=== PATIENT | male | born 1940 | race Caucasian/White ===

== ENCOUNTER 2019-03-26 16:41 | Emergency (ER) | payer OTHER ==
[~2019-03-26] VITALS: Ht 172.7 cm; Wt 79.4 kg
[~2019-03-26 16:41] MED LIST: COREG12.5 MG PO; FOLIC ACID1 MG PO; GARLIC1000 M1 MT; LOSARTAN POTASS25 MG PO; NIACIN MT; PREVACID30 M2 MT; TAMSULOSIN HCL0.4 MG PO; VITAMIN A DAY1 EACH MT; WARFARIN SODIU2.5 MG PO; Z.0.AVAPRO150 MG MT; Z.0.CARVEDILOL25 MG MT; Z.0.ECOTRIN325 MG MT; Z.0.LIPITOR40 MG MT; Z.0.VITAMIN C1000 M2 MT; Z.0.VITAMIN D1000 UN MT; Z.0.VITAMIN E1000 UN MT; Z.0.ZETIA10 MG MT; Z.1.ISOSORBIDE MONO3 MT; Z.6.FISH OIL 1,0001 MT
--- OUTSIDE RECORDS SUMMARY | 2019-03-26 16:45 | XMS REPORT | Continuity of Care Document ---
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 Name Role Phone [facility] Unavailable Unavailable Problems Problem Status Onset Date Classification Date Reported Comments Source UNK Active 02/16/2017 [facility] Chronic systolic heart failure (disorder) Active Problem 03/05/2017 [facility] Hyperlipidemia (disorder) Active Problem 03/05/2017 [facility] Hypertensive disorder, systemic arterial (disorder) Active Problem 03/05/2017 [facility] History of - myocardial infarction (context-dependent category) Active Problem 03/05/2017 [facility] Medications Medication Details Route Status Patient Instructions Ordering Provider Order Date Source atorvastatin 80 mg, 2 tab, Route: PO, Drug form: TAB, Daily, Dosing Weight 77.074, kg, Start date: 03/02/17 9:00:00 CDT, Duration: 30 day, Stop date: 03/31/17 9:00:00 CDTNotes: (Same as: Lipitor) Inactive 03/02/2017 [facility] Losartan 25 mg, 1 tab, Route: PO, Drug form: TAB, Daily, Dosing Weight 77.074, kg, Start date: 03/02/17 9:00:00 CDT, Duration: 30 day, Stop date: 03/31/17 9:00:00 CDTNotes: (Same as: Cozaar) Inactive 03/02/2017 [facility] tamsulosin 0.4 mg, 1 cap, Route: PO, Drug form: CAP, Daily, Dosing Weight 77.074, kg, Start date: 03/01/17 21:00:00 CDT, Duration: 30 day, Stop date: 03/30/17 21:00:00 CDTNotes: (Same As: Flomax) "Do Not Crush" No Longer Active 03/02/2017 [facility] pantoprazole 40 mg, 1 tab, Route: PO, Drug form: ECTAB, Daily, Dosing Weight 77.074, kg, Start date: 03/01/17 21:00:00 CDT, Duration: 30 day, Stop date: 03/30/17 21:00:00 CDTNotes: Tablet should not be chewed or crushed. (Same as: Protonix) No Longer Active 03/02/2017 [facility] carvedilol 12.5 mg, 1 tab, Route: PO, Drug form: TAB, BID, Dosing Weight 77.074, kg, Start date: 03/01/17 21:00:00 CDT, Duration: 30 day, Stop date: 03/31/17 9:00:00 CDTNotes: Give with food. (Same As: Coreg) No Longer Active 03/02/2017 [facility] acetaminophen-codeine #3 1 tab, Route: PO, Drug Form: TAB, Dosing Weight 77.074, kg, Q4H, PRN Pain Score 4-6, Start date: 03/01/17 16:22:00 CDT, Duration: 30 day, Stop date: 03/31/17 16:21:00 CDTNotes: Do not exceed 4gm/day of acetaminophen. (Same as: Tylenol with Codeine # 3) No Longer Active 03/01/2017 [facility] Vancomycin 1 gm, Route: IVPB, ONCE, Dosing Weight 77.074, kg, Start date: 03/01/17 16:22:00 CDT, Stop date: 03/01/17 16:22:00 CDT, ABX Indication: Surgical ProphylaxisNotes: TIME CRITICAL MEDICATION (Same As: Vanc ocin) Infusion rate 2001 mg: infuse over 2.5 hours MEDICATION WASTE Product Size: 1000 mg Product Wasted: ___ mg No Longer Active 03/01/2017 [facility] Ondansetron 4 mg, 2 mL, Route: IVP, Drug form: INJ, Q8H, Dosing Weight 77.074, kg, PRN Nausea & Vomiting, Start date: 03/01/17 16:22:00 CDT, Duration: 30 day, Stop date: 03/31/17 16:21:00 CDTNotes: (Same as: Zofran) MEDICATION WASTE Product Size: 4 mg Product Wasted: ___ mg No Longer Active 03/01/2017 [facility] Acetaminophen 325 mg, 1 tab, Route: PO, Drug form: TAB, Q4H, Dosing Weight 77.074, kg, PRN Pain Score 4-6, Start date: 03/01/17 16:22:00 CDT, Duration: 30 day, Stop date: 03/31/17 16:21:00 CDTNotes: Do not exceed 4 gm/day. (Same as: Tylenol) No Longer Active 03/01/2017 [facility] Epinephrine 0.005 MG/ML / Lidocaine Hydrochloride 10 MG/ML Injection 60 mL, Route: SUB-Q, Drug Form: INJ, Dosing Weight 77.074, kg, ONCE, Start date: 03/01/17 11:40:00 CDT, Stop date: 03/01/17 11:40:00 CDTNotes: (lidocaine-epi 1%-1:38275 30 ml AMP (PF)) Preservative-free (Same as: Xylocaine-MPF w/Epinephrine) Inactive 03/01/2017 [facility] warfarin 1 mg oral tablet 1 mg=1 tab, PO, Daily, # 30 tab, 0 Refill(s) Active 02/26/2017 [facility] pantoprazole 40 mg oral enteric coated tablet 40 mg=1 tab, PO, Daily, # 30 tab, 0 Refill(s) Active 02/26/2017 [facility] tamsulosin 0.4 mg oral capsule 0.4 mg=1 cap, PO, Daily, # 30 cap, 0 Refill(s) Active 02/26/2017 [facility] losartan 25 mg oral tablet 25 mg=1 tab, PO, Daily, # 30 tab, 1 Refill(s) Active 02/26/2017 [facility] carvedilol 12.5 mg oral tablet 12.5 mg=1 tab, PO, BID, # 180 tab, 0 Refill(s) Active 02/26/2017 [facility] atorvastatin 80 mg oral tablet 80 mg=1 tab, PO, Bedtime, # 30 tab, 0 Refill(s) Active 02/26/2017 [facility] Allergies, Adverse Reactions, Alerts No Known Medication Allergies Immunizations Immunization Date Given Site Status Last Updated Comments Source pneumococcal 23-valent vaccine 06/02/2015 completed [facility] Results Order Name Results Value Reference Range Date Interpretation Comments Source HEMATOLOGY PT 21.7 12.0 - 14.7 03/01/2017 [facility] HEMATOLOGY INR 1.85 0.85 - 1.17 03/01/2017 [facility] CHEM PANEL eGFR 65 02/26/2017 Result Comment: The eGFR is calculated using the CKD-EPI formula. In most young, healthy individuals the eGFR will be >90 mL/min/1.73m2. The eGFR declines with age. An eGFR of 60-89 may be normal in some populations, particularly the elderly, for whom the CKD-EPI formula has not been extensively validated. Use of the eGFR is not recommended in the following populations:

Individuals with unstable creatinine concentrations, including patients and those with serious co-morbid conditions.

Patients with extremes in muscle mass or diet.

The data above are obtained from the National Kidney Disease Education Program (NKDEP) which additionally recommends that when the eGFR is used in patients with extremes of body mass index for purposes of drug dosing, the eGFR should be multiplied by the estimated BMI. [facility] CHEM PANEL Chloride Lvl 106 95 - 109 02/26/2017 [facility] CHEM PANEL Potassium Lvl 4.0 3.5 - 5.1 02/26/2017 [facility] CHEM PANEL Sodium Lvl 143 135 - 145 02/26/2017 [facility] CHEM PANEL Creatinine Lvl 1.10 0.50 - 1.40 02/26/2017 [facility] CHEM PANEL Glucose Lvl 108 70 - 99 02/26/2017 [facility] CHEM PANEL BUN 12 7 - 22 02/26/2017 [facility] CHEM PANEL Calcium Lvl 8.8 8.5 - 10.5 02/26/2017 [facility] CHEM PANEL CO2 33 24 - 32 02/26/2017 [facility] CHEM PANEL AGAP 8.0 10.0 - 20.0 02/26/2017 [facility] HEMATOLOGY PTT 33.8 22.9 - 35.8 02/26/2017 [facility] HEMATOLOGY INR 2.22 0.85 - 1.17 02/26/2017 [facility] HEMATOLOGY PT 25.0 12.0 - 14.7 02/26/2017 [facility] HEMATOLOGY RDW 13.6 11.5 - 14.5 02/26/2017 [facility] HEMATOLOGY MCH 30.8 27.0 - 31.0 02/26/2017 [facility] MCHC 34.5 32.0 - 36.0 02/26/2017 [facility] MPV 7.6 7.4 - 10.4 02/26/2017 [facility] Platelet 111 133 - 450 02/26/2017 [facility] HEMATOLOGY Hgb 15.0 14.0 - 18.0 02/26/2017 [facility] HEMATOLOGY RBC 4.87 4.70 - 6.10 02/26/2017 [facility] Hct 43.5 42.0 - 54.0 02/26/2017 [facility] MCV 89.4 80.0 - 94.0 02/26/2017 [facility] HEMATOLOGY WBC 5.2 3.7 - 10.4 02/26/2017 [facility] Eosinophils # 0.3 0.0 - 0.5 02/26/2017 [facility] Monocytes # 0.5 0.0 - 0.8 02/26/2017 [facility] HEMATOLOGY Lymphocytes # 0.9 1.0 - 5.5 02/26/2017 [facility] Basophils 0.8 0.0 - 1.0 02/26/2017 [facility] Segs-Bands # 3.4 1.5 - 8.1 02/26/2017 [facility] Segs 66.8 45.0 - 75.0 02/26/2017 [facility] Monocytes 9.0 2.0 - 12.0 02/26/2017 [facility] Eosinophils 5.6 0.0 - 4.0 02/26/2017 [facility] Lymphocytes 17.8 20.0 - 40.0 02/26/2017 [facility] Pathology Reports No Data Provided for This Section Diagnostic Reports Report Value Date Source Chest 2 views DX Patient Name: SHANNON PALMER : 1940; Age: 76 years y/o Male MR: [id number] Study: Chest 2 views DX 03/02/2017 3:00 AM CDT Ordering Physician: MD Coco Regalado MD Clinical Indication: Heart failure - Status post PPM/ICD Implantation; Comparison: 03/01/2017 2 views chest Pacemaker/defibrillator generator left chest wal,l with leads extending into the right atrium and ventricle, as before. Heart size normal. No evidence for acute congestive heart failure or pulmonary edema No pneumothorax or pleural effusion. Lungs are hyperinflated but remain clear. IMPRESSION: No new or acute finding. SL: [id number] 03/02/2017 [facility] Chest 1 v for Placement DX Study: Chest 1 v portable 03/01/2017 1753 hours Clinical Indication: Status post PPM/ICD Implantation; Comparison: None FINDINGS: Intracardiac devices introduced from a left subclavian approach terminate within the right heart. No pneumothorax is evident. The lungs are emphysematous but appear clear. No vascular congestion or pleural effusion is seen. Cardiac size is normal. There is minor aortic atherosclerosis. IMPRESSION: No pneumothorax post intracardiac device placement. SL: [id number] 03/01/2017 [facility] Consultation Notes No Data Provided for This Section Discharge Summaries No Data Provided for This Section History and Physicals No Data Provided for This Section Vital Signs Vital Sign Value Date Comments Source Systolic (mm Hg) 128 03/02/2017 [facility] Diastolic (mm Hg) 78 03/02/2017 [facility] Respitory Rate 18 03/02/2017 [facility] Heart Rate 68 03/02/2017 [facility] Temperature Oral (F) 98.1 F 03/02/2017 [facility] Heart Rate 61 03/02/2017 [facility] Temperature Oral (F) 98.3 F 03/02/2017 [facility] Respitory Rate 18 03/02/2017 [facility] Systolic (mm Hg) 129 03/02/2017 [facility] Diastolic (mm Hg) 75 03/02/2017 [facility] Heart Rate 63 03/02/2017 [facility] Temperature Oral (F) 97.8 F 03/02/2017 [facility] Systolic (mm Hg) 101 03/02/2017 [facility] Diastolic (mm Hg) 63 03/02/2017 [facility] Respitory Rate 18 03/02/2017 [facility] BMI Calculated 26.61 02/26/2017 [facility] Weight 77.074 02/26/2017 [facility] Height 170.18 cm 02/26/2017 [facility] Encounters Location Location Details Encounter Type Encounter Number Reason For Visit Attending Provider ADM Date DC Date Status Source [facility] Bedded Outpatient [id number] Coco Regalado 03/01/2017 03/02/2017 [facility] Procedures Procedure Code Date Perfomer Comments Source Cholecystectomy [id number] [facility] Colonoscopy [id number] [facility] ICD - Internal cardiac defibrillator procedure [id number] [facility] Assessment and Plan No Data Provided for This Section Plan of Care No Data Provided for This Section Social History Social History Date Source Social History TypeResponse Substance Abuse Use: None. Alcohol Never, Previous treatment: None. Smoking Status Former smoker; Type: Cigarettes; Exposure to Tobacco Smoke None; Cigarette Smoking Last 365 Days No; Reg Smoking Cessation Counseling No 02/26/2017 [facility] Family History No Data Provided for This Section Advance Directives No Data Provided for This Section Functional Status No Data Provided for This Section
--- OUTSIDE RECORDS SUMMARY | 2019-03-26 16:45 | XMS REPORT | Clinical Summary ---
Author Author [facility] Organization [facility] Address Unknown Phone Unavailable Care Team Providers Care Guidance Counselor Name Role Phone Sheldon Tan MD PCP Allergies No Known Allergies Medications End Date Status Medication Sig Dispensed Refills Start Date Active atorvastatin (LIPITOR) 80 Take 80 mg by 3 MG tablet mouth daily. 8 Active carvedilol (COREG) 25 MG Take 25 mg by 1 tablet mouth 2 (two) 8 times a day. Active losartan (COZAAR) 25 MG Take 25 mg by 2 tablet mouth daily. 8 Active pantoprazole (PROTONIX) Take 40 mg by 0 40 MG EC tablet mouth daily. 8 Active tamsulosin (FLOMAX) 0.4 TAKE ONE 0 mg capsule,extended CAPSULE BY 8 release 24hr MOUTH EVERY DAY 30 MINUTES AFTER THE SAME MEAL DAILY Active warfarin (COUMADIN) 1 MG Take 1 mg by 3 tablet mouth daily. 8 Active folic acid (FOLVITE) 1 MG Take 1 mg by 0 tablet mouth daily. Active ascorbic acid, vitamin C, Take 500 mg 0 (VITAMIN C) 500 MG tablet by mouth daily. Active vitamin A 54248 UNIT Take 10,000 0 capsule Units by mouth daily. Active cholecalciferol, vitamin Take 1,000 0 D3, (VITAMIN D3) 1,000 Units by unit tablet mouth daily. Active Problems No known active problems Encounters Care Team Description Date Type Specialty HuJovita MD Impacted cerumen of right ear (Primary Dx) 08/12/2018 Office Visit Otolaryngology after 03/25/2018 Social History Date Tobacco Use Types Packs/Day Years Used Never Smoker Smokeless Tobacco: Never Used Drinks/Week oz/Week Comments Alcohol Use occasional Yes Sex Assigned at Date Recorded Not on file Industry Job Start Date Occupation Not on file Not on file Not on file Travel End Travel History Travel Start No recent travel history available. 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 Weight 172.7 cm (5' 8") 08/12/2018 10:52 AM NUT SHELLER MACHINE OPERATOR Height 26.91 08/12/2018 10:52 AM NUT SHELLER MACHINE OPERATOR Body Mass Index Plan of Treatment Care Team Description [place] [id number] [facility] [address] [place] [address] 08/28/2019 Office Visit Otolaryngology Health Maintenance Due Date Last Done Comments SHINGLES VACCINES (#1) 1991 65+ PNEUMOCOCCAL VACCINE 2006 (1 of 2 - PCV13) INFLUENZA VACCINE 03/02/2019 Results Not on fileafter 03/25/2018 Insurance Type Payer Benefit Subscriber ID Effective Phone Address Plan / Dates Group HMO [employer] TEX[employer] xxxxxxxxx 2015-P JESSENIA tran Advance Directives For more information, please contact: [phone] 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
--- OUTSIDE RECORDS SUMMARY | 2019-03-26 16:45 | XMS REPORT | Summary of Care ---
Author Author [facility] Organization [facility] Address Unknown Phone Unavailable Encounter SHERLEY Ko(CORRINE) [id number] Date(s): 03/01/17 - 03/02/17 [facility] [address] [place] [address]- [phone] Discharge Disposition: Home or Self Care Attending Physician: Coco Regalado MD Referring Physician: Coco Regalado MD Vital Signs 1 2 3 Most recent to oldest [Reference Range]: 170.18 cm (02/26/17 4:00 PM) Height 98.1 DegF (03/02/17 7:57 AM) 98.3 DegF (03/02/17 4:00 AM) 97.8 DegF (03/02/17 12:00 AM) Temperature Oral [96.4-99.1 DegF] 128/78 mmHg (03/02/17 7:57 AM) 129/75 mmHg (03/02/17 4:00 AM) 101/63 mmHg (03/02/17 12:00 AM) Blood Pressure [90-140/60-90 mmHg] 18 BRMIN (03/02/17 7:57 AM) 18 BRMIN (03/02/17 4:00 AM) 18 BRMIN (03/02/17 12:00 AM) Respiratory Rate [14-20 BRMIN] 68 bpm (03/02/17 7:57 AM) 61 bpm (03/02/17 4:00 AM) 63 bpm (03/02/17 12:00 AM) Peripheral Pulse Rate [60-100 bpm] 77.074 kg (02/26/17 4:00 PM) Weight 26.61 m2 (02/26/17 4:00 PM) Body Mass Index Problem List Condition Effective Dates Status Health Status Informant Systolic heart Active failure, chronic(Confirmed) HLD Active (hyperlipidemia)(Con firmed) Hypertension(Confirm Active ed) History of heart Active attack(Confirmed) Allergies, Adverse Reactions, Alerts Substance Reaction Severity Status NKDA Active Medications acetaminophen 325 mg, 1 tab, Route: PO, Drug form: TAB, Q4H, Dosing Weight 77.074, kg, PRN Michaela n Score 4-6, Start date: 03/01/17 16:22:00 CDT, Duration: 30 day, Stop date: 16:21:00 CDT Notes: Do not exceed 4 gm/day. (Same as: Tylenol) Start Date: 03/01/17 Stop Date: 03/02/17 Status: Discontinued acetaminophen-codeine #3 1 tab, Route: PO, Drug Form: TAB, Dosing Weight 77.074, kg, Q4H, PRN Pain Score 4-6, Start date: 03/01/17 16:22:00 CDT, Duration: 30 day, Stop date: 03/31/17 16 :21:00 CDT Notes: Do not exceed 4gm/day of acetaminophen. (Same as: Tylenol with Codeine # 3) Start Date: 03/01/17 Stop Date: 03/02/17 Status: Discontinued atorvastatin 80 mg, 2 tab, Route: PO, Drug form: TAB, Daily, Dosing Weight 77.074, kg, Start date: 03/02/17 9:00:00 CDT, Duration: 30 day, Stop date: 03/31/17 9:00:00 CDT Notes: (Same as: Lipitor) Start Date: 03/02/17 Stop Date: 03/02/17 Status: Discontinued atorvastatin 80 mg oral tablet 80 mg=1 tab, PO, Bedtime, # 30 tab, 0 Refill(s) Start Date: 02/26/17 Status: Ordered carvedilol 12.5 mg, 1 tab, Route: PO, Drug form: TAB, BID, Dosing Weight 77.074, kg, Start date: 03/01/17 21:00:00 CDT, Duration: 30 day, Stop date: 03/31/17 9:00:00 CDT Notes: Give with food. (Same As: Coreg) Start Date: 03/01/17 Stop Date: 03/02/17 Status: Discontinued carvedilol 12.5 mg oral tablet 12.5 mg=1 tab, PO, BID, # 180 tab, 0 Refill(s) Start Date: 02/26/17 Status: Ordered EPINEPHrine-lidocaine 1:200,000-1% preservative-free injectable solution 60 mL, Route: SUB-Q, Drug Form: INJ, Dosing Weight 77.074, kg, ONCE, Start date: 03/01/17 11:40:00 CDT, Stop date: 03/01/17 11:40:00 CDT Notes: (lidocaine-epi 1%-1:78734 30 ml AMP (PF)) Preservative-free (Same as: X ylocaine-MPF w/Epinephrine) Start Date: 03/01/17 Stop Date: 03/01/17 Status: Completed losartan 25 mg, 1 tab, Route: PO, Drug form: TAB, Daily, Dosing Weight 77.074, kg, Start date: 03/02/17 9:00:00 CDT, Duration: 30 day, Stop date: 03/31/17 9:00:00 CDT Notes: (Same as: Alyce) Start Date: 03/02/17 Stop Date: 03/02/17 Status: Discontinued losartan 25 mg oral tablet 25 mg=1 tab, PO, Daily, # 30 tab, 1 Refill(s) Start Date: 02/26/17 Status: Ordered ondansetron 4 mg, 2 mL, Route: IVP, Drug form: INJ, Q8H, Dosing Weight 77.074, kg, PRN Nause a & Vomiting, Start date: 03/01/17 16:22:00 CDT, Duration: 30 day, Stop date: 03/31/17 16:21:00 CDT Notes: (Same as: Edilberto) MEDICATION WASTE Product Size: 4 mgProduct Was brooke: ___ mg Start Date: 03/01/17 Stop Date: 03/02/17 Status: Discontinued pantoprazole 40 mg, 1 tab, Route: PO, Drug form: ECTAB, Daily, Dosing Weight 77.074, kg, Star t date: 03/01/17 21:00:00 CDT, Duration: 30 day, Stop date: 03/30/17 21:00:00 CD T Notes: Tablet should not be chewed or crushed.(Same as: Protonix) Start Date: 03/01/17 Stop Date: 03/02/17 Status: Discontinued pantoprazole 40 mg oral enteric coated tablet 40 mg=1 tab, PO, Daily, # 30 tab, 0 Refill(s) Start Date: 02/26/17 Status: Ordered tamsulosin 0.4 mg, 1 cap, Route: PO, Drug form: CAP, Daily, Dosing Weight 77.074, kg, Start date: 03/01/17 21:00:00 CDT, Duration: 30 day, Stop date: 03/30/17 21:00:00 CDT Notes: (Same As: Flomax) "Do Not Crush" Start Date: 03/01/17 Stop Date: 03/02/17 Status: Discontinued tamsulosin 0.4 mg oral capsule 0.4 mg=1 cap, PO, Daily, # 30 cap, 0 Refill(s) Start Date: 02/26/17 Status: Ordered vancomycin + sodium chloride 0.9% INJ 250 mL 1 gm, Route: IVPB, ONCE, Dosing Weight 77.074, kg, Start date: 03/01/17 16:22:00 CDT, Stop date: 03/01/17 16:22:00 CDT, ABX Indication: Surgical Prophylaxis Notes: TIME CRITICAL MEDICATION(Same As: Vancocin)Infusion rate< 1000 mg: infuse over 1 [id number] - 1500 mg: infuse over 1.5 [id number] - 2000 mg: infuse over 2 hours> 2001 mg: infuse over 2.5 hours MEDICATION WASTE Product Size: 1000 mgProduct Wasted: ___ mg Start Date: 03/01/17 Stop Date: 03/02/17 Status: Completed warfarin 1 mg oral tablet 1 mg=1 tab, PO, Daily, # 30 tab, 0 Refill(s) Start Date: 02/26/17 Status: Ordered Results ELECTROLYTES Most recent to 1 2 oldest [Reference Range]: Sodium Lvl [135-145 143 mEq/L mEq/L] (02/26/17 4:07 PM) Potassium Lvl 4.0 mEq/L [3.5-5.1 mEq/L] (02/26/17 4:07 PM) Chloride Lvl [95-109 106 mEq/L mEq/L] (02/26/17 4:07 PM) CO2 [24-32 mEq/L] 33 mEq/L *HI* (02/26/17 4:07 PM) AGAP [10.0-20.0 8.0 mEq/L mEq/L] *LOW* (02/26/17 4:07 PM) CHEM PANEL Most recent to 1 2 oldest [Reference Range]: Creatinine Lvl 1.10 mg/dL [0.50-1.40 mg/dL] (02/26/17 4:07 PM) eGFR 65 mL/min/1.73m2 1 *NA* (02/26/17 4:07 PM) BUN [7-22 mg/dL] 12 mg/dL (02/26/17 4:07 PM) Glucose Lvl [70-99 108 mg/dL mg/dL] *HI* (02/26/17 4:07 PM) Calcium Lvl 8.8 mg/dL [8.5-10.5 mg/dL] (02/26/17 4:07 PM) 1Result Comment: The eGFR is calculated using the [...] from the National Kidney Disease Education Program ( NKDEP) which additionally recommends that when the eGFR is used in patients with extremes of body mass index for purposes of drug dosing, the eGFR should be mul tiplied by the estimated BMI. HEMATOLOGY Most recent to 1 2 oldest [Reference Range]: WBC [3.7-10.4 K/CMM] 5.2 K/CMM (02/26/17 4:07 PM) RBC [4.70-6.10 4.87 M/CMM M/CMM] (02/26/17 4:07 PM) Hgb [14.0-18.0 g/dL] 15.0 g/dL (02/26/17 4:07 PM) Hct [42.0-54.0 %] 43.5 % (02/26/17 4:07 PM) MCV [80.0-94.0 fL] 89.4 fL (02/26/17 4:07 PM) MCH [27.0-31.0 pg] 30.8 pg (02/26/17 4:07 PM) MCHC [32.0-36.0 34.5 g/dL g/dL] (02/26/17 4:07 PM) RDW [11.5-14.5 %] 13.6 % (02/26/17 4:07 PM) Platelet [133-450 111 K/CMM K/CMM] *LOW* (02/26/17 4:07 PM) MPV [7.4-10.4 fL] 7.6 fL (02/26/17 4:07 PM) Segs [45.0-75.0 %] 66.8 % (02/26/17 4:07 PM) Lymphocytes 17.8 % [20.0-40.0 %] *LOW* (02/26/17 4:07 PM) Monocytes [2.0-12.0 9.0 % %] (02/26/17 4:07 PM) Eosinophils [0.0-4.0 5.6 % %] *HI* (02/26/17 4:07 PM) Basophils [0.0-1.0 0.8 % %] (02/26/17 4:07 PM) Segs-Bands # 3.4 K/CMM [1.5-8.1 K/CMM] (02/26/17 4:07 PM) Lymphocytes # 0.9 K/CMM [1.0-5.5 K/CMM] *LOW* (02/26/17 4:07 PM) Monocytes # [0.0-0.8 0.5 K/CMM K/CMM] (02/26/17 4:07 PM) Eosinophils # 0.3 K/CMM [0.0-0.5 K/CMM] (02/26/17 4:07 PM) PT [12.0-14.7 21.7 seconds 25.0 seconds seconds] *HI* *HI* (03/01/17 5:24 PM) (02/26/17 4:07 PM) INR [0.85-1.17] 1.85 2.22 *HI* *HI* (03/01/17 5:24 PM) (02/26/17 4:07 PM) PTT [22.9-35.8 33.8 seconds seconds] (02/26/17 4:07 PM) Immunizations Given and Recorded Vaccine Date Status Refusal Reason pneumococcal 23-valent vaccine 06/02/15 Recorded Procedures Procedure Date Related Diagnosis Body Site Cholecystectomy Colonoscopy ICD - Internal cardiac defibrillator procedure Social History Social History Type Response Substance Abuse Use: None. Alcohol Never, Previous treatment: None. Smoking Status Former smoker; Type: Cigarettes; Exposure to Tobacco Smoke None; Cigarette Smoking Last 365 Days No; Reg Smoking Cessation Counseling No Assessment and Plan No data available for this section
--- OUTSIDE RECORDS SUMMARY | 2019-03-26 16:49 | XMS REPORT | Clinical Summary ---
Author Author [facility] Address Unknown Phone Unavailable Care Team Providers Care Biological Sciences Professor Name Role Phone Sheldon Tan MD PCP [...] tablet by mouth daily. 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 MANAGER Weight 172.7 cm (5' 8") 08/12/2018 10:52 AM CUSTOMER SUPPORT MANAGER Height 26.91 08/12/2018 10:52 AM CUSTOMER SUPPORT MANAGER Body Mass Index Plan of Treatment Care Team Description [place] [id number] [facility] [address] [place] [address] 08/28/2019 Office Visit Otolaryngology Health Maintenance Due Date Last Done Comments SHINGLES VACCINES (#1) 1991 65+ PNEUMOCOCCAL VACCINE 2006 (1 of 2 - PCV13) INFLUENZA VACCINE 03/02/2019 Results Not on fileafter 03/25/2018 Insurance Type Payer Benefit Subscriber ID Effective Phone Address Plan / Dates Group HMO [employer] TEX[employer]US xxxxxxxxx 2015-P JESSENIA tran Advance Directives For more information, please contact: [phone] 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
--- OUTSIDE RECORDS SUMMARY | 2019-03-26 16:49 | XMS REPORT | Continuity of Care Document ---
Author Author [facility] Organization [facility] Address Unknown Phone Unavailable Care Team Providers Care Field Operations Technician Name Role Phone [facility] Unavailable Unavailable Problems Problem Status Onset Date Classification Date Reported Comments Source UNK Active 02/16/2017 [facility] Chronic systolic heart failure (disorder) Active Problem 03/05/2017 [facility] Hyperlipidemia (disorder) Active Problem 03/05/2017 [facility] Hypertensive disorder, systemic arterial (disorder) Active Problem 03/05/2017 [facility] History of - myocardial infarction (context-dependent category) Active Problem 03/05/2017 [facility] Medications Medication Details Route Status Patient Instructions Ordering Provider Order Date Source atorvastatin 80 mg, 2 tab, Route: PO, Drug form: TAB, Daily, Dosing Weight 77.074, kg, Start date: 03/02/17 9:00:00 CDT, Duration: 30 day, Stop date: 03/31/17 9:00:00 CDTNotes: (Same as: Lipitor) Inactive 03/02/2017 [facility] Losartan 25 mg, 1 tab, Route: PO, Drug form: TAB, Daily, Dosing Weight 77.074, kg, Start date: 03/02/17 9:00:00 CDT, Duration: 30 day, Stop date: 03/31/17 9:00:00 CDTNotes: (Same as: Cozaar) Inactive 03/02/2017 [facility] tamsulosin 0.4 mg, 1 cap, Route: PO, Drug form: CAP, Daily, Dosing Weight 77.074, kg, Start date: 03/01/17 21:00:00 CDT, Duration: 30 day, Stop date: 03/30/17 21:00:00 CDTNotes: (Same As: Flomax) "Do Not Crush" No Longer Active 03/02/2017 [facility] pantoprazole 40 mg, 1 tab, Route: PO, Drug form: ECTAB, Daily, Dosing Weight 77.074, kg, Start date: 03/01/17 21:00:00 CDT, Duration: 30 day, Stop date: 03/30/17 21:00:00 CDTNotes: Tablet should not be chewed or crushed. (Same as: Protonix) No Longer Active 03/02/2017 [facility] carvedilol 12.5 mg, 1 tab, Route: PO, Drug form: TAB, BID, Dosing Weight 77.074, kg, Start date: 03/01/17 21:00:00 CDT, Duration: 30 day, Stop date: 03/31/17 9:00:00 CDTNotes: Give with food. (Same As: Coreg) No Longer Active 03/02/2017 [facility] acetaminophen-codeine #3 1 tab, Route: PO, Drug Form: TAB, Dosing Weight 77.074, kg, Q4H, PRN Pain Score 4-6, Start date: 03/01/17 16:22:00 CDT, Duration: 30 day, Stop date: 03/31/17 16:21:00 CDTNotes: Do not exceed 4gm/day of acetaminophen. (Same as: Tylenol with Codeine # 3) No Longer Active 03/01/2017 [facility] Vancomycin 1 gm, Route: IVPB, ONCE, Dosing Weight 77.074, kg, Start date: 03/01/17 16:22:00 CDT, Stop date: 03/01/17 16:22:00 CDT, ABX Indication: Surgical ProphylaxisNotes: TIME CRITICAL MEDICATION (Same As: Vanc ocin) Infusion rate 2001 mg: infuse over 2.5 hours MEDICATION WASTE Product Size: 1000 mg Product Wasted: ___ mg No Longer Active 03/01/2017 [facility] Ondansetron 4 mg, 2 mL, Route: IVP, Drug form: INJ, Q8H, Dosing Weight 77.074, kg, PRN Nausea & Vomiting, Start date: 03/01/17 16:22:00 CDT, Duration: 30 day, Stop date: 03/31/17 16:21:00 CDTNotes: (Same as: Zofran) MEDICATION WASTE Product Size: 4 mg Product Wasted: ___ mg No Longer Active 03/01/2017 [facility] Acetaminophen 325 mg, 1 tab, Route: PO, Drug form: TAB, Q4H, Dosing Weight 77.074, kg, PRN Pain Score 4-6, Start date: 03/01/17 16:22:00 CDT, Duration: 30 day, Stop date: 03/31/17 16:21:00 CDTNotes: Do not exceed 4 gm/day. (Same as: Tylenol) No Longer Active 03/01/2017 [facility] Epinephrine 0.005 MG/ML / Lidocaine Hydrochloride 10 MG/ML Injection 60 mL, Route: SUB-Q, Drug Form: INJ, Dosing Weight 77.074, kg, ONCE, Start date: 03/01/17 11:40:00 CDT, Stop date: 03/01/17 11:40:00 CDTNotes: (lidocaine-epi 1%-1:75865 30 ml AMP (PF)) Preservative-free (Same as: Xylocaine-MPF w/Epinephrine) Inactive 03/01/2017 [facility] warfarin 1 mg oral tablet 1 mg=1 tab, PO, Daily, # 30 tab, 0 Refill(s) Active 02/26/2017 [facility] pantoprazole 40 mg oral enteric coated tablet 40 mg=1 tab, PO, Daily, # 30 tab, 0 Refill(s) Active 02/26/2017 [facility] tamsulosin 0.4 mg oral capsule 0.4 mg=1 cap, PO, Daily, # 30 cap, 0 Refill(s) Active 02/26/2017 [facility] losartan 25 mg oral tablet 25 mg=1 tab, PO, Daily, # 30 tab, 1 Refill(s) Active 02/26/2017 [facility] carvedilol 12.5 mg oral tablet 12.5 mg=1 tab, PO, BID, # 180 tab, 0 Refill(s) Active 02/26/2017 [facility] atorvastatin 80 mg oral tablet 80 mg=1 tab, PO, Bedtime, # 30 tab, 0 Refill(s) Active 02/26/2017 [facility] Allergies, Adverse Reactions, Alerts No Known Medication Allergies Immunizations Immunization Date Given Site Status Last Updated Comments Source pneumococcal 23-valent vaccine 06/02/2015 completed Dave [facility] Results Order Name Results Value Reference Range Date Interpretation Comments Source HEMATOLOGY PT 21.7 12.0 - 14.7 03/01/2017 [facility] HEMATOLOGY INR 1.85 0.85 - 1.17 03/01/2017 [facility] CHEM PANEL eGFR 65 02/26/2017 Result [...] should be multiplied by the estimated BMI. [facility] CHEM PANEL Chloride Lvl 106 95 - 109 02/26/2017 [facility] CHEM PANEL Potassium Lvl 4.0 3.5 - 5.1 02/26/2017 [facility] CHEM PANEL Sodium Lvl 143 135 - 145 02/26/2017 [facility] CHEM PANEL Creatinine Lvl 1.10 0.50 - 1.40 02/26/2017 [facility] CHEM PANEL Glucose Lvl 108 70 - 99 02/26/2017 [facility] CHEM PANEL BUN 12 7 - 22 02/26/2017 [facility] CHEM PANEL Calcium Lvl 8.8 8.5 - 10.5 02/26/2017 [facility] CHEM PANEL CO2 33 24 - 32 02/26/2017 [facility] CHEM PANEL AGAP 8.0 10.0 - 20.0 02/26/2017 [facility] HEMATOLOGY PTT 33.8 22.9 - 35.8 02/26/2017 [facility] HEMATOLOGY INR 2.22 0.85 - 1.17 02/26/2017 [facility] HEMATOLOGY PT 25.0 12.0 - 14.7 02/26/2017 [facility] HEMATOLOGY RDW 13.6 11.5 - 14.5 02/26/2017 [facility] HEMATOLOGY MCH 30.8 27.0 - 31.0 02/26/2017 [facility] MCHC 34.5 32.0 - 36.0 02/26/2017 [facility] MPV 7.6 7.4 - 10.4 02/26/2017 [facility] Platelet 111 133 - 450 02/26/2017 [facility] HEMATOLOGY Hgb 15.0 14.0 - 18.0 02/26/2017 [facility] HEMATOLOGY RBC 4.87 4.70 - 6.10 02/26/2017 [facility] Hct 43.5 42.0 - 54.0 02/26/2017 [facility] MCV 89.4 80.0 - 94.0 02/26/2017 [facility] HEMATOLOGY WBC 5.2 3.7 - 10.4 02/26/2017 [facility] Eosinophils # 0.3 0.0 - 0.5 02/26/2017 [facility] Monocytes # 0.5 0.0 - 0.8 02/26/2017 [facility] HEMATOLOGY Lymphocytes # 0.9 1.0 - 5.5 02/26/2017 [facility] Basophils 0.8 0.0 - 1.0 02/26/2017 [facility] Segs-Bands # 3.4 1.5 - 8.1 02/26/2017 [facility] Segs 66.8 45.0 - 75.0 02/26/2017 [facility] Monocytes 9.0 2.0 - 12.0 02/26/2017 [facility] Eosinophils 5.6 0.0 - 4.0 02/26/2017 [facility] Lymphocytes 17.8 20.0 - 40.0 02/26/2017 [facility] Pathology Reports No Data Provided for This Section Diagnostic Reports Report Value Date Source Chest 2 views DX Patient Name: SHANNON PALMER : 1940; Age: 76 years y/o Male MR: [id number] Study: Chest 2 views DX 03/02/2017 3:00 [...] IMPRESSION: No new or acute finding. SL: [id number] 03/02/2017 [facility] Chest 1 v for Placement DX [...] post intracardiac device placement. SL: MESSI 03/01/2017 [facility] Consultation Notes No Data Provided for This Section Discharge Summaries No Data Provided for This Section History and Physicals No Data Provided for This Section Vital Signs Vital Sign Value Date Comments Source Systolic (mm Hg) 128 03/02/2017 [facility] Diastolic (mm Hg) 78 03/02/2017 [facility] Respitory Rate 18 03/02/2017 [facility] Heart Rate 68 03/02/2017 [facility] Temperature Oral (F) 98.1 F 03/02/2017 [facility] Heart Rate 61 03/02/2017 [facility] Temperature Oral (F) 98.3 F 03/02/2017 [facility] Respitory Rate 18 03/02/2017 [facility] Systolic (mm Hg) 129 03/02/2017 [facility] Diastolic (mm Hg) 75 03/02/2017 [facility] Heart Rate 63 03/02/2017 [facility] Temperature Oral (F) 97.8 F 03/02/2017 [facility] Systolic (mm Hg) 101 03/02/2017 [facility] Diastolic (mm Hg) 63 03/02/2017 [facility] Respitory Rate 18 03/02/2017 [facility] BMI Calculated 26.61 02/26/2017 [facility] Weight 77.074 02/26/2017 [facility] Height 170.18 cm 02/26/2017 [facility] Encounters Location Location Details Encounter Type Encounter Number Reason For Visit Attending Provider ADM Date DC Date Status Source [facility] Bedded Outpatient [id number] Coco Regalado 03/01/2017 03/02/2017 [facility] Procedures Procedure Code Date Perfomer Comments Source Cholecystectomy [id number] [facility] Colonoscopy [id number] [facility] ICD - Internal cardiac defibrillator procedure [id number] [facility] Assessment and Plan No Data Provided for This Section Plan of Care No Data Provided for This Section Social History Social History Date Source Social History TypeResponse Substance Abuse Use: None. Alcohol Never, Previous treatment: None. Smoking Status Former smoker; Type: Cigarettes; Exposure to Tobacco Smoke None; Cigarette Smoking Last 365 Days No; Reg Smoking Cessation Counseling No 02/26/2017 [facility] Family History No Data Provided for This Section Advance Directives No Data Provided for This Section Functional Status No Data Provided for This Section
[2019-03-26] MEDS: TETANUS/DIPHTHERIA TOX ADULT 0.5 ML SYR IM ONE (17:17)
[2019-03-26 17:37] VITALS: BP 132/74
== END 2019-03-26 17:50 | disposition home or self-care (01) ==
LOC: ER 16:47
DX: S61.211A Laceration without foreign body of left index finger without damage to nail, initial encounter (principal); W26.0XXA Contact with knife, initial encounter; Y92.009 Unspecified place in unspecified non-institutional (private) residence as the place of occurrence of the external cause; Z23 Encounter for immunization
CPT/HCPCS: 90471; 90714; 99283

== ENCOUNTER 2020-04-03 12:15 | Emergency (ER) | payer OTHER ==
[~2020-04-03] VITALS: Ht 172.7 cm; Wt 79.4 kg
[~2020-04-03 12:15] MED LIST changes: -Z.0.VITAMIN C1000 M2 MT; +Z.0.VITAMIN C1000 M2 PO
[2020-04-03 13:30] LABS: BASOPHILS % 0.4 % (0.0-1.0); EOSINOPHILS # (AUTO) 0.1 (0.0-0.4); EOSINOPHILS % 0.9 % (0.0-6.0); HEMATOCRIT 43.2 % (38.2-49.6); HEMOGLOBIN 14.5 g/dL (14.0-18.0); LYMPHOCYTES # (AUTO) 0.9 (1.0-3.2); LYMPHOCYTES % 13.6 % (18.0-39.1); MEAN CORPUSCULAR HEMOGLOBIN 30.4 pg (28-32); MEAN CORPUSCULAR HGB CONC 33.6 g/dL (31-35); MEAN CORPUSCULAR VOLUME 90.6 fL (81-99); MONOCYTES # (AUTO) 0.7 (0.2-0.8); MONOCYTES % 9.9 % (4.4-11.3); NEUTROPHILS % 74.6 % (38.7-80.0); PLATELET COUNT 204 x10e3/uL (140-360); RED BLOOD COUNT 4.77 x10e6/uL (4.3-5.7); RED CELL DISTRIBUTION WIDTH 14.9 % (11.7-14.4)
[2020-04-03 13:37] LABS: INR 2.38; PROTHROMBIN TIME 27.6 seconds (11.9-14.5)
--- OUTSIDE RECORDS SUMMARY | 2020-04-03 13:43 | XMS REPORT | Continuity of Care Document ---
Author Author [facility] t Organization [facility] Address [address] [place] [address] Phone Unavailable Care Team Providers Care Twisting Frame Operator Name Role Phone JOSEPH DILLARD MD PCP Coco Regalado Attphys Payers Payer Name Policy Type Policy Number Effective Date Expiration Date Cayla Dunbar [id number] 2015 00:00:00 [facility] Problems Condition Name Condition Details Condition Category Status Onset Date Resolution Date Last Treatment Date Treating Clinician Comments Source UNK NATTYK Active 02/16/2017 [facility] Diagnosis Active 2017-02-16 00:00:00 2017-03-11 07:36:00 Gabriela Ogden Anemia Anemia Problem Active 2015-12-02 00:00:00 [facility] 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 Problem Active 2015-12-02 00:00:00 [facility] Chronic systolic heart failure (disorder) Chronic systolic heart failure (disorder) Active Problem 03/05/2017 [facility] Problem Active 2017-03-05 00:48:49 Dante Ogden Hyperlipidemia (disorder) Hype rlipidemia (disorder) Active Problem 03/05/2017 [facility] Problem Active 2017-03-05 00:4 8:49 Nancy Ogden Hypertensive disorder, systemic arterial (disorder) Hypertensive disorder, systemic arterial (disorder) Active Problem 03/05/2017 [facility] Problem Active 2017-03-05 00:48:49 Nancy Ogden History of - myocardial infarction (context-dependent category) History of - myocardial infarction (context-dependent category) Active Problem 03/05/2017 [facility] Problem Active 2017-03-05 00:48:4 9 [facility] Allergies, Adverse Reactions, Alerts This patient has no known allergies or adverse reactions. Social History Social Habit Start Date Stop Date Quantity Comments Source Sex Assigned At [facility] Alcohol intake 2018-08-12 00:00:00 2018-08-12 00:00:00 Current drinker of alcohol (finding) Sidney Gannon Alcohol Comment 2017-11-29 00:00:00 2017-11-29 00:00:00 occasional Sidney Gannon Social History 2017-02-26 20:44:39 2017-02-26 20:44:39 [facility] Smoking Status Start Date Stop Date Source Never smoker [facility] Medications Ordered Medication Name Filled Medication Name Start Date Stop Da te Current Medication? Ordering Clinician Indication Dosage Frequency Signature (SIG) Comments Components Source folic acid (FOLVITE) 1 MG tablet 2018-08-12 10:54:41 Yes 1mg QD Take 1 mg by mouth daily. Sidney Gannon ascorbic acid, vitamin C, (VITAMIN C) 500 MG tablet 08-12 10:54:41 Yes 500mg QD Take 500 mg by mouth daily. Sidney Gannon vitamin A 92636 UNIT capsule 2018-08-12 10:54:41 Yes 40862P QD Take 10,000 Units by mouth daily. Sidney coreas cholecalciferol, vitamin D3, (VITAMIN D3) 1,000 unit tablet 2018-08-12 10:54:41 Yes 1000U QD Take 1,000 Units by mouth julieta ly. Sidney Gannon pantoprazole (PROTONIX) 40 MG EC tablet 2017-11-11 00:00:00 Yes 40mg QD Take 40 mg by mouth daily. Sidney jordan carvedilol (COREG) 25 MG tablet 2017-10-23 00:00:00 Yes 25mg Q.5D Take 25 mg by mouth 2 (two) times a day. Venkatesh Gannon losartan (COZAAR) 25 MG tablet 2017-10-06 00:00:00 Yes 25mg QD Take 25 mg by mouth daily. Sidney Gannon tamsulosin (FLOMAX) 0.4 mg capsule,extended release 24hr 2017-09-29 00:00:00 Yes TAKE ONE CAPSU LE BY MOUTH EVERY DAY 30 MINUTES AFTER THE SAME MEAL DAILY Sidney Gannon atorvastatin (LIPITOR) 80 MG tablet 2017-09-06 00:00:00 Yes 80mg QD Take 80 mg by mouth daily. Sidney Gannon warfarin (COUMADIN) 1 MG tablet 2017-09-06 00:00:00 Yes 1mg QD Take 1 mg by mouth daily. Sidney Gannon atorvastatin 2017-03-02 14:00:00 No Notes: (Same as: Lipitor) Nancy Ogden Losartan 2017-03-02 14:00:00 No Notes: (Jesse e as: Cozaar) Nancy Ogden tamsulosin 2017-03-02 02:00:00 No Notes: (Same As: Flomax) "Do Not Crush" Nancy Ogden pantoprazole 2017-03-02 02:00:00 No Notes: Tablet should not be chewed or crushed. (Same as: Protonix) Gabriela Ogden carvedilol 2017-03-02 02:00:00 No Notes: Give with food. (Same As: Coreg) Nancy Ogden acetaminophen-codeine #3 2017-03-01 21:22:00 No Notes: Do not exceed 4gm/day of acetaminophen. (Same as: Tylenol with Codeine # 3) Nancy Ogden Vancomycin 2017-03-01 21:22:00 No 2001 mg: infuse over 2.5 hours MEDICATION WASTE Product Size: 1000 mg Product Wasted: ___ mg Nancy Ogden Ondansetron 2017-03-01 21:22:00 No Notes: (Same as: Zofran) MEDICATION WASTE Product Size: 4 mg Product Wasted: ___ mg Nancy Ogden Acetaminophen 2017-03-01 21:22:00 No Notes: Do not exceed 4 gm/day. (Same as: Tylenol) Nancy Ogden Epinephrine 0.005 MG/ML / Lidocaine Hydrochloride 10 MG/ML I njection 2017-03-01 16:40:00 No Notes: (lidocaine-epi 1%-1:13492 30 ml AMP (PF)) Preservative-free (Same as: Xylocaine-MPF w/Epinephrine) Nancy Ogden warfarin 1 mg oral tablet 2017-02-26 21:03:00 Yes 1 mg = 1 tab, PO, Daily, # 30 tab, 0 Refill(s) Nancy Walsh mauricio pantoprazole 40 mg oral enteric coated tablet 2017-02-26 21:02:0 0 Yes 40 mg = 1 tab, PO, Daily, # 30 tab, 0 Refill(s) Nancy Ogden tamsulosin 0.4 mg oral capsule 2017-02-26 21:02:00 Yes 0.4 mg = 1 cap, PO, Daily, # 30 cap, 0 Refill(s) Me lillian Ogden losartan 25 mg oral tablet 2017-02-26 21:01:00 Yes 25 mg = 1 tab, PO, Daily, # 30 tab, 1 Refill(s) Arin Ogden carvedilol 12.5 mg oral tablet 2017-02-26 21:01:00 Yes 12.5 mg = 1 tab, PO, BID, # 180 tab, 0 Refill(s) Brianne Ogden atorvastatin 80 mg oral tablet 2017-02-26 21:01:00 Yes 80 mg = 1 tab, PO, Bedtime, # 30 tab, 0 Refill(s) Nancy Ogden Ascorbic Acid (Vitamin C) 1,000 Mg Tablet.sa Ascorbic Acid (Vitamin C) 1,000 Mg Tablet.sa Yes 1 Daily [facility] Atorvastatin Calcium (Lipitor) 40 Mg Tablet Atorvastat in Calcium (Lipitor) 40 Mg Tablet Yes 1 Daily [facility] Carvedilol (Coreg) 12.5 Mg Tab Carvedilol (Coreg) 12.5 Mg Tab Yes 6.25 Twice A Day [facility] Cholecalciferol (Vitamin D) 1,000 Unit Tablet Cholecal ciferol (Vitamin D) 1,000 Unit Tablet Yes 1 Daily [facility] Ezetimibe (Zetia) 10 Mg Tablet Ezetimibe (Zetia) 10 Mg Tablet Yes 1 Daily [facility] Folic Acid 1 Mg Tablet Folic Acid 1 Mg Tablet Yes 800 Daily [facility] Isosorbide Mononitrate 30 Mg Tab.sr.24h Isosorbide Mononitra te 30 Mg Tab.sr.24h Yes 1 Daily [facility] Lansoprazole (Prevacid) 30 Mg Tab. Lansoprazole (Prevacid) 30 Mg Tab. Yes 1 Daily [facility] Multivitamins (Vitamin A Day) 1 Each Tablet Multivitam ins (Vitamin A Day) 1 Each Tablet Yes 1 Daily [facility] Niacin (Slo-Niacin) 500 Mg Tablet.sa Niacin (Slo-Niacin) 500 Mg Tab let.sa Yes 1 Daily [facility] [place]-3 Fatty Acids/Fish Oil (Fish Oil 1,000 Mg Capsul e) 1 Each Capsule [place]-3 Fatty Acids/Fish Oil (Fish Oil 1,000 Mg Capsule) 1 Each Capsule Yes 1 3 Times Per Day [facility] Tamsulosin Hcl 0.4 Mg Cap.er.24h Tamsulosin Hcl 0.4 Mg Cap.er.24h Yes .4 Daily [facility] Aspirin (Ecotrin) 325 Mg Tablet., 1 Mouth/Throat As pirin (Ecotrin) 325 Mg Tablet., 1 Mouth/Throat 2015-12-04 00:00:00 No 1 Daily [facility] Carvedilol 25 Mg Tablet, 1 Mouth/Throat Carvedilol 25 Mg Tablet, 1 Mouth/Throat 2015-12-04 00:00:00 No 1 2 Times Per Day [facility] Garlic 1,000 Mg Capsule, 1 Mouth/Throat Garlic 1,000 Mg Capsule, 1 Mouth/Throat 2015-12-04 00:00:00 No 1 Daily [facility] Irbesartan (Avapro) 150 Mg Tablet, 1 Mouth/Throat Irb esartan (Avapro) 150 Mg Tablet, 1 Mouth/Throat 2015-12-04 00:00:00 No 1 Daily [facility] Losartan Potassium 25 Mg Tablet, 50 Mg Oral Losartan P otassium 25 Mg Tablet, 50 Mg Oral 2015-12-04 00:00:00 No 50 Daily [facility] Vitamin E Mixed (Vitamin E) 1,000 Unit Capsule, 1 Elisa th/Throat Vitamin E Mixed (Vitamin E) 1,000 Unit Capsule, 1 Mouth/Throat 2015-12-04 00:00:00 No 1 Daily [facility] Warfarin Sodium 2.5 Mg Tablet, 2.5 Mg Oral Warfarin So dium 2.5 Mg Tablet, 2.5 Mg Oral 2015-12-04 00:00:00 No 2.5 Daily [facility] Vital Signs Vital Name Observation Time Observation Value Comments Source Systolic (mm Hg) 2017-03-02 12:57:00 [facility] [place] Diastolic (mm Hg) 2017-03-02 12:57:00 [facility] [place] Respitory Rate 2017-03-02 12:57:00 [facility] [place] Heart Rate 2017-03-02 12:57:00 [facility] [place] Temperature Oral (F) 2017-03-02 12:57:00 98.1 F [facility] Heart Rate 2017-03-02 09:00:00 [facility] Temperature Oral (F) 2017-03-02 09:00:00 98.3 F [facility] Respitory Rate 2017-03-02 09:00:00 [facility] [place] Systolic (mm Hg) 2017-03-02 09:00:00 [facility] [place] Diastolic (mm Hg) 2017-03-02 09:00:00 [facility] Heart Rate 2017-03-02 05:00:00 [facility] [place] Temperature Oral (F) 2017-03-02 05:00:00 97.8 F [facility] [place] Systolic (mm Hg) 2017-03-02 05:00:00 [facility] [place] Diastolic (mm Hg) 2017-03-02 05:00:00 [facility] [place] Respitory Rate 2017-03-02 05:00:00 [facility] [place] BMI Calculated 2017-02-26 21:00:00 [facility] [place] Weight 2017-02-26 21:00:00 [facility] Height 2017-02-26 21:00:00 170.18 cm [facility] Procedures Procedure Date / Time Performed Performing Clinician Sourc e Cholecystectomy [facility] Colonoscopy [facility] ICD - Internal cardiac defibrillator procedure [facility] Plan of Care Planned Activity Planned Date Details Comments Source Future Scheduled Test 2020-05-02 00:00:00 INFLUENZA VACCINE [code = INFLUENZA VACCINE] [facility] Future Scheduled Test 2006 00:00:00 65+ PNEUMOCOCCAL V ACCINE (1 of 2 - PCV13) [code = 65+ PNEUMOCOCCAL VACCINE (1 of 2 - PCV13)] [facility] Future Scheduled Test 1991 00:00:00 SHINGLES VACCINES (#1) [code = SHINGLES VACCINES (#1)] [facility] Encounters Start Date/Time End Date/Time Encounter Type Admission Type Attendi [facility] Care Department Encounter ID Source 2019-03-26 16:47:00 2019-03-26 17:50:00 Departed Emergency Room [facility] [id number] [facility] 2017-03-01 11:11:00 2017-03-02 11:41:00 Outpatient Tere Regalado [facility] [place] [id number] Results Test Description Test Time Test Comments Results Result Comments Source HEMATOLOGY 2017-03-01 22:24:00 Test Item PT (test code = PT) 21.7 s 12.0-14.7 [facility] [id number] 22:24:001.85[facility] 2017-02-26 21:07:0065[facility] HermannCHEM [id number] 21:07:75063Nmxsnzkj HermannCHEM [id number] 21:07:004.0[facility]annCHEM [id number] 21:07:33694Remvsoxn HermannCHEM [id number] 21:07:001.10[facility]annCHEM [id number] 21:07:38651Tekjivgr HermannCHEM [id number] 21:07:0012 [facility]annCHEM [id number] 21:07:008.8[facility]ann[facility]M PANEL 2017-02-26 21:07:0033[facility] HermannCHEM [id number] 21:07:008.0[facility] [id number] 21:07:00* Test Item Value Reference Range Interpretation Comments PTT (test code = PTT) 33.8 s 22.9-35.8 [facility] [id number] 21:07:002.22[facility]OLOGY 2017-02-26 21:07:00* Test Item Value Reference Range Interpretation Comments PT (test code = PT) 25.0 s 12.0-14.7 [facility] [id number] 21:07:0013.6[facility]OLOGY 2017-02-26 21:07:00* Test Item Value Reference Range Interpretation Comments MCH (test code = MCH) 30.8 pg 27.0-31.0 [facility] [id number] 21:07:0034.5[facility]ann[facility]MATOLOGY 2017-02-26 21:07:007.6[facility] [id number] 21:07:55037Ugctkxyg GwcqlhmEKUPGLOWRH2292-46-54 21:07:0015.0[facility] HyxpqelLWQSMFROSS1293-76-49 21:07:004.87[facility] [id number] 21:07:0043.5[facility] [place] [id number] 21:07:0089.4[facility] [id number] 21:07:00 5.2[facility] [id number] 21:07:000.3[facility]ann[facility]MATOLOGY 2017-02-26 21:07:000.5[facility] [id number] 21:07:000.9[facility] HkapqneVUJFJXHWYT1022-01-65 21:07:000.8[facility] DfzltyuVQABLKIFTX0843-99-60 21:07:003.4[facility] DzcetetJJCFBSJEHA0846-03-52 21:07:0066.8[facility] [id number] 21:07:009.0[facility] [id number] 21:07:005.6 [facility] [id number] 21:07:0017.8[facility] [place]
--- OUTSIDE RECORDS SUMMARY | 2020-04-03 13:43 | XMS REPORT | Clinical Summary ---
Author Author [facility] Address Unknown Phone Unavailable Care Team Providers Care Facility Attendant Name Role Phone Sheldon Tan MD PCP Allergies No Known Allergies Medications End Date Status Medication Sig Dispensed Refills Start Date Active atorvastatin (LIPITOR) 80 Take 80 mg by 3 201 MG tablet mouth daily. 8 Active carvedilol (COREG) 25 MG Take 25 mg by 1 10/23 tablet mouth 2 (two) 8 times a [...] 1 MG Take 1 mg by 3 09/06 tablet mouth daily. 8 Active folic acid (FOLVITE) 1 MG Take 1 mg by 0 tablet mouth daily. Active ascorbic acid, vitamin C, Take 500 mg 0 (VITAMIN C) 500 MG tablet by mouth daily. Active vitamin A 64610 UNIT Take 10,000 0 capsule Units by mouth daily. Active cholecalciferol, vitamin Take 1,000 0 D3, (VITAMIN D3) 1,000 Units by unit tablet mouth daily. Active Problems No known active problems Social History Date Tobacco Use Types Packs/Day Years Used Never Smoker Smokeless Tobacco: Never Used Drinks/Week oz/Week Comments Alcohol Use occasional Yes Sex Assigned at Date Recorded Not on file Industry Job Start Date Occupation Not on file Not on file Not on file Travel End Travel History Travel Start No recent travel history available. Last Filed Vital Signs Not on file Plan of Treatment Health Maintenance Due Date Last Done Comments SHINGLES VACCINES (#1) 1991 65+ PNEUMOCOCCAL VACCINE 2006 (1 of 2 - PCV13) INFLUENZA VACCINE 05/02/2020 Results Not on fileafter 04/03/2019 Insurance Type Payer Benefit Subscriber ID Effective Phone Address Plan / Dates Group HMO [employer] xxxxxxxxx 2015-P JESSENIA tran Advance Directives For more information, please contact: [phone] Patient Ground Instructor Basic Explanation Type Date Recorded Advance Directives, Living Will and Medical Power of Distillery [employer]
--- OUTSIDE RECORDS SUMMARY | 2020-04-03 13:43 | XMS REPORT | Continuity of Care Document ---
Author Author Nancy NuregoSHANNON Organization [employer] Address Unknown Phone Unavailable Care Team Providers Care Comb Capper Name Role Phone [employer] Information Exchange Unavailable Un available Problems Problem Status Onset Date Classification Date Reported Comments Source UNK Active 0 02/16/2017 [facility] Chronic systolic heart failure (disorder) Active Problem 03/05/2017 [facility] Hyperlipidemia (disorder) Acti ve Problem 10/2016 [facility] Hypertensive disorder, systemic arterial (disorder) Active Problem 03/05/2017 [facility] History of - myocardial infarction (cont ext-dependent category) Active Prob [place] 03/05/2017 [facility] Medications Medication Details Route Status Patient Instructions Ordering Provider Order Date Source atorvastatin Notes: (Same as: Lipitor) Inactive 03/02/2017 [facility] Losartan Notes: (Same as: Coza ar) Inactive 03/02/2017 [facility] tamsulosin Notes: (Same As: Fl omax) "Do Not Crush" No Longer Active 03/02/2017 [facility] pantoprazole Notes: Tablet karely uld not be chewed or crushed. (Same as: Protonix) N o Longer Active 03/02/2017 [facility] carvedilol Notes: Give with fo od. (Same As: Coreg) No Longer Active 03/02/2017 [facility] acetaminophen-codeine #3 Notes : Do not exceed 4gm/day of acetaminophen. (Same as: Tylenol with Codeine # 3) No Longer Active 03/01/2017 [facility] Vancomycin 2001 mg: infuse ov er 2.5 hours MEDICATION WASTE Product Size: 1000 mg Product Wasted: ___ mg No Longer Active 03/01/2017 [facility] Ondansetron Notes: (Same as: Lissy fuller) MEDICATION WASTE Product Size: 4 mg Product Wasted: ___ mg No Longer Active 03/01/2017 [facility] Acetaminophen Notes: Do not ex ceed 4 gm/day. (Same as: Tylenol) No Longer Active 03/01/2017 [facility] Epinephrine 0.005 MG/ML / Lidocaine Hydr ochloride 10 MG/ML Injection Notes: (lidocaine-epi 1%-1:91216 30 ml A MP (PF)) Preservative-free (Same as: Xylocaine-MPF w/Epinephrine) Inactive 03/01/2017 [facility] warfarin 1 mg oral tablet 1 mg = 1 tab, PO, Daily, # 30 tab, 0 Refill(s) Active 02/26/2017 [facility] pantoprazole 40 mg oral enteric coated tablet 40 mg = 1 tab, PO, Daily, # 30 tab, 0 Refill(s) Active 02/26/2017 [facility] tamsulosin 0.4 mg oral capsule 0.4 mg = 1 cap, PO, Daily, # 30 cap, 0 Refill(s) Active 02/26/2017 [facility] losartan 25 mg oral tablet 25 mg = 1 tab, PO, Daily, # 30 tab, 1 Refill(s) Active 02/26/2017 [facility] carvedilol 12.5 mg oral tablet 12.5 mg = 1 tab, PO, BID, # 180 tab, 0 Refill(s) Active 02/26/2017 [facility] atorvastatin 80 mg oral tablet 80 mg = 1 tab, PO, Bedtime, # 30 tab, 0 Refill(s) Active 02/26/2017 [facility] Allergies, Adverse Reactions, Alerts No Known Medication Allergies Immunizations Immunization Date Given Site Status Last Updated Comments Source pneumococcal 23-valent vaccine 06/02/2015 completed Grecia blanc [facility] Results Order Name Results Value Reference Range Date Interpretation Comments Source HEMATOLOGY PT 21.7 12.0 - 14.7 03/01/2017 [facility] HEMATOLOGY INR 1.85 0.85 - 1.17 03/01/2017 [facility] CHEM PANEL eGFR 65 02/26/2017 Result Comment: [...] should be multiplied by the estimated BMI. [facility] CHEM PANEL Chloride Lvl 106 95 - 109 02/26/2017 [facility] CHEM PANEL Potassium Lvl 4.0 3.5 - 5.1 02/26/2017 [facility] CHEM PANEL Sodium Lvl 143 135 - 145 02/26/2017 [facility] CHEM PANEL Creatinine Lvl 1.10 0.50 - 1.40 02/26/2017 [facility] CHEM PANEL Glucose Lvl 108 70 - 99 02/26/2017 [facility] CHEM PANEL BUN 12 7 - 22 02/26/2017 [facility] CHEM PANEL Calcium Lvl 8.8 8.5 - 10.5 02/26/2017 [facility] CHEM PANEL CO2 33 24 - 32 02/26/2017 [facility] CHEM PANEL AGAP 8.0 10.0 - 20.0 02/26/2017 [facility] HEMATOLOGY PTT 33.8 22.9 - 35.8 02/26/2017 [facility] INR 2.22 0.85 - 1.17 02/26/2017 [facility] PT 25.0 12.0 - 14.7 02/26/2017 [facility] RDW 13.6 11.5 - 14.5 02/26/2017 [facility] MCH 30.8 27.0 - 31.0 02/26/2017 [facility] MCHC 34.5 32.0 - 36.0 02/26/2017 [facility] MPV 7.6 7.4 - 10.4 02/26/2017 [facility] Platelet 111 133 - 450 02/26/2017 [facility] Hgb 15.0 14.0 - 18.0 02/26/2017 [facility] RBC 4.87 4.70 - 6.10 02/26/2017 [facility] Hct 43.5 42.0 - 54.0 02/26/2017 [facility] MCV 89.4 80.0 - 94.0 02/26/2017 [facility] WBC 5.2 3.7 - 10.4 02/26/2017 [facility] Eosinophils # 0.3 0.0 - 0.5 02/26/2017 [facility] Monocytes # 0.5 0.0 - 0.8 02/26/2017 [facility] HEMATOLOGY Lymphocytes # 0.9 1.0 - 5.5 02/26/2017 [facility] HEMATOLOGY Basophils 0.8 0.0 - 1.0 02/26/2017 [facility] HEMATOLOGY Segs-Bands # 3.4 1.5 - 8.1 02/26/2017 [facility] HEMATOLOGY Segs 66.8 45.0 - 75.0 02/26/2017 [facility] HEMATOLOGY Monocytes 9.0 2.0 - 12.0 02/26/2017 [facility] HEMATOLOGY Eosinophils 5.6 0.0 - 4.0 02/26/2017 [facility] HEMATOLOGY Lymphocytes 17.8 20.0 - 40.0 02/26/2017 [facility] Pathology Reports No Data Provided for This Section Diagnostic Reports Report Value Date Source Chest 2 views DX Patient Name: SHANNON PALMER : 1940; Age: 76 years y/o Male MR: [id number] Study: Chest 2 views DX 03/02/2017 3:00 [...] IMPRESSION: No new or acute finding. SL: [id number] 03/02/2017 [facility] Chest 1 v for Placement DX Umesh dy: Chest 1 v portable 03/01/2017 1753 hours [...] No pneumothorax post intracardiac device placement. SL: [id number] 03/01/2017 [facility] Consultation Notes No Data Provided for This Section Discharge Summaries No Data Provided for This Section History and Physicals No Data Provided for This Section Vital Signs Vital Sign Value Date Comments Source Systolic (mm Hg) 128 03/02/2017 [facility] Diastolic (mm Hg) 78 03/02/2017 [facility] Respitory Rate 18 03/02/2017 [facility] Heart Rate 68 03/02/2017 [facility] Temperature Oral (F) 98.1 F 03/02/2017 [facility] Heart Rate 61 03/02/2017 [facility] Temperature Oral (F) 98.3 F 03/02/2017 [facility] Respitory Rate 18 03/02/2017 [facility] Systolic (mm Hg) 129 03/02/2017 [facility] Diastolic (mm Hg) 75 03/02/2017 [facility] Heart Rate 63 03/02/2017 [facility] Temperature Oral (F) 97.8 F 03/02/2017 [facility] Systolic (mm Hg) 101 03/02/2017 [facility] Diastolic (mm Hg) 63 03/02/2017 [facility] Respitory Rate 18 03/02/2017 [facility] BMI Calculated 26.61 02/26/2017 [facility] Weight 77.074 02/26/2017 [facility] Height 170.18 cm 02/26/2017 [facility] Encounters Location Location Details Encounter Type Encounter Number Reason For Visit Attending Provider ADM Date DC Date Status Source [facility] Bedded Outpatient [id number] Coco Fabricio 03/01/2017 03/02/2017 [facility] Procedures Procedure Code Date Perfomer Comments Source Cholecystectomy [id number] [facility] st Colonoscopy [id number] [facility] ICD - Internal cardiac defibrillator procedure [id number] [facility] Assessment and Plan No Data Provided for This Section Plan of Care No Data Provided for This Section Social History Social History Date Source Social History TypeResponse Substance Abuse Use: None. Alcohol Never, Previous treatment: None. Smoking Status Former smoker; Type: Cigarettes; Exposure to Tobacco Smoke None; Cigarette Smoking Last 365 Days No; Reg Smoking Cessation Counseling No 02/26/2017 [facility] Family History No Data Provided for This Section Advance Directives No Data Provided for This Section Functional Status No Data Provided for This Section
[2020-04-03 13:44] LABS: BILIRUBIN,URINE NEGATIVE (NEGATIVE); CLARITY,URINE SL CLOUDY (CLEAR); COLOR,URINE YELLOW (YELLOW); KETONES,URINE TRACE (NEGATIVE); LEUKOCYTE ESTERASE ,URINE NEGATIVE (NEGATIVE); NITRITE,URINE NEGATIVE (NEGATIVE); PROTEIN,URINE DIPSTICK TRACE (NEGATIVE)
[2020-04-03 13:47] LABS: ALBUMIN 3.5 g/dL (3.5-5.0); ALBUMIN/GLOBULIN RATIO 1.1 (0.8-2.0); ANION GAP 15.6 mmol/L (8-16); CALCIUM 8.6 mg/dL (8.4-10.2); CREATININE, SERUM 1.58 mg/dL (0.72-1.25); POTASSIUM 4.6 mmol/L (3.5-5.1)
[2020-04-03 14:03] LABS: BACTERIA,URINE FEW /HPF; CALCIUM OXALATE CRYSTALS,UR FEW (FEW); EPITHELIAL CELLS,URINE RARE /LPF; RBC,URINE 0-5 /HPF (0-5); WBC,URINE (MAN) 0-5 /HPF (0-5)
--- NOTE | 2020-04-03 14:23 | Emergency Department Note ---
History of Present Illnes History of Present Illness Chief Complaint: Abdominal Complaints History of Present Illness This is a 79 year old male Chief Complaint Comment PATIENT SENT BY DR. DILLARD YESTERDAY BEGAN HAVING BLACK STOOLS X 1 EPISODE. PATIENT ON WARFARIN. Historian: Patient Arrival Mode: Car Additional Treatment LEAD RECREATION ASSISTANT: NONE Agricultural Equipment Design Engineer Required: No Onset (how long ago): day(s) (1) Location: Stool Quality: black Radiation: Reports non-radiation Severity: mild Onset quality: sudden Duration (how long): day(s) Timing of current episode: unable to specify Progression: unchanged Chronicity: new Context: Denies recent illness, Denies recent surgery Relieving factors: none Exacerbating factors: none Associated symptoms: Reports denies other symptoms Treatments prior to arrival: none Past Medical/Family History Physician Review I have reviewed the patient's past medical and family history. Any updates have been documented here. Past Medical History Recent Fever: No Clinical Suspicion of Infectio: No New/Unexplained Change in Ment: No Past Medical History: Hypertension, CO, A-Fib, Cancer, GERD, Hyperlipedemia Other Medical History: IRREGULAR HEART BEAT BLOOD CLOT IN HEART BPH SKIN CANCER LEUKEMIA Past Surgical History: Cholecysctectomy, Pacer/AICD Other Surgery: DEFIBRILLATOR PLACEMENT Social History Smoking Cessation: Never Smoker Counseling Performed: No Alcohol Use: Occasional Any Illegal Drug Use: No Other Last Tetanus: UNK Any Pre-Existing Lines (PICC,: No Review of Systems Review of Systems Constitutional: Reports no symptoms EENTM: Reports no symptoms Cardiovascular: Reports no symptoms Respiratory: Reports no symptoms Gastrointestinal: Reports no symptoms, Reports other (melena) Genitourinary: Reports no symptoms Musculoskeletal: Reports no symptoms Integumentary: Reports no symptoms Neurological: Reports no symptoms Psychological: Reports no symptoms Endocrine: Reports no symptoms Hematological/Lymphatic: Reports no symptoms Physical Exam Related Data Allergies: Coded Allergies: No Known Drug Allergies (Verified Allergy, Mild, 03/26/19) Triage Vital Signs Vital Signs Date Time Temp Pulse Resp B/P (MAP) Pulse Ox O2 Delivery O2 Flow Rate FiO2 04/03/20 12:44 98.0 59 18 97/61 98 Room Air Vital signs reviewed: Yes Physical Exam CONSTITUTIONAL Constitutional: Present well-developed, Present well-nourished HENT HENT: Present normocephalic, Present atraumatic, Present oropharynx clear /moist, Present nose normal HENT L/R: Present left ext ear normal, Present right ext ear normal EYES Eyes: Reports PERRL, Reports conjunctivae normal NECK Neck: Present ROM normal PULMONARY Pulmonary: Present effort normal, Present breath sounds normal CARDIOVASCULAR Cardiovascular: Present regular rhythm, Present heart sounds normal, Present capillary refill normal, Present normal rate GASTROINTESTINAL Abdominal: Present soft, Present nontender, Present bowel sounds normal GENITOURINARY Genitourinary: Present exam deferred SKIN Skin: Present warm, Present dry MUSCULOSKELETAL Musculoskeletal: Present ROM normal NEUROLOGICAL Neurological: Present alert, Present oriented x 3, Present no gross motor or sensory deficits PSYCHOLOGICAL Psychological: Present mood/affect normal, Present judgement normal Results Laboratory Result Diagram: 04/03/20 1308 04/03/20 1308 Laboratory Laboratory Tests Test 04/03/20 13:25 04/03/20 13:08 Urine Color Yellow (YELLOW) Urine Clarity Sl cloudy (CLEAR) Urine pH 5.5 (5 - 7) Urine Specific Anna 1.030 (1.010-1.025) Urine Protein Trace (NEGATIVE) Urine Glucose (UA) Negative (NEGATIVE) Urine Ketones Trace (NEGATIVE) Urine Blood Negative (NEGATIVE) Urine Nitrite Negative (NEGATIVE) Urine Bilirubin Negative (NEGATIVE) Urine Urobilinogen 2.0 mg/dL (0.2 - 1) Urine Leukocyte Esterase Negative (NEGATIVE) Urine RBC 0-5 /HPF (0-5) Urine WBC 0-5 /HPF (0-5) Urine Epithelial Cells Rare /LPF (NONE) Urine Calcium Oxalate Crystals Few (FEW) Urine Bacteria Few /HPF (NONE) Urine Hyaline Casts 2-5 (0-1) White Blood Count 6.70 x10e3/uL (4.8-10.8) Red Blood Count 4.77 x10e6/uL (4.3-5.7) Hemoglobin 14.5 g/dL (14.0-18.0) Hematocrit 43.2 % (38.2-49.6) Mean Corpuscular Volume 90.6 fL (81-99) Mean Corpuscular Hemoglobin 30.4 pg (28-32) Mean Corpuscular Hemoglobin Concent 33.6 g/dL (31-35) Red Cell Distribution Width 14.9 % (11.7-14.4) Platelet Count 204 x10e3/uL (140-360) Neutrophils (%) (Auto) 74.6 % (38.7-80.0) Lymphocytes (%) (Auto) 13.6 % (18.0-39.1) Monocytes (%) (Auto) 9.9 % (4.4-11.3) Eosinophils (%) (Auto) 0.9 % (0.0-6.0) Basophils (%) (Auto) 0.4 % (0.0-1.0) Neutrophils # (Auto) 5.0 (2.1-6.9) Lymphocytes # (Auto) 0.9 (1.0-3.2) Monocytes # (Auto) 0.7 (0.2-0.8) Eosinophils # (Auto) 0.1 (0.0-0.4) Basophils # (Auto) 0.0 (0.0-0.1) Absolute Immature Granulocyte (auto 0.04 x10e3/uL (0-0.1) Prothrombin Time 27.6 seconds (11.9-14.5) Prothromb Time International Ratio 2.38 Sodium Level 140 mmol/L (136-145) Potassium Level 4.6 mmol/L (3.5-5.1) Chloride Level 104 mmol/L (98-107) Carbon Dioxide Level 25 mmol/L (22-29) Anion Gap 15.6 mmol/L (8-16) Blood Urea Nitrogen 20 mg/dL (7-26) Creatinine 1.58 mg/dL (0.72-1.25) Estimat Glomerular Filtration Rate 43 ML/MIN (60-) BUN/Creatinine Ratio 13 (6-25) Glucose Level 120 mg/dL (74-118) Calcium Level 8.6 mg/dL (8.4-10.2) Total Bilirubin 1.3 mg/dL (0.2-1.2) Aspartate Amino Transf (AST/SGOT) 157 IU/L (5-34) Alanine Aminotransferase (ALT/SGPT) 309 IU/L (0-55) Alkaline Phosphatase 151 IU/L (40-150) Total Protein 6.8 g/dL (6.5-8.1) Albumin 3.5 g/dL (3.5-5.0) Globulin 3.3 g/dL (2.3-3.5) Albumin/Globulin Ratio 1.1 (0.8-2.0) Lipase 31 U/L (8-78) Procedures 12 Lead ECG Interpretation ECG Interpretation : Agricultural Equipment Design Engineer: Interpreted by ED physician Date: Apr 03, 2020 Rhythm: paced Rate: normal QRS axis: normal ST segments normal: Yes T waves normal: Yes Assessment & Plan Medical Decision Making MDM 79 y.o M here for melena. No episodes since he has been here. Hgb stable, CT unremarkable. Discussed with Dr. Dillard and Dr. Jean office and will follow up in clinic tomorrow with Dr. Jean. INR 2.3 and he will hold his dose of warfarin tomorrow. Patient is appropriate for discharge. Reassessment Reassessment time: 17:15 Reassessment Well appearing, NAD Assessment & Plan Final Impression: (1) Melena Depart Disposition: HOME, SELF-CARE Last Vital Signs Date Time Temp Pulse Resp B/P (MAP) Pulse Ox O2 Delivery O2 Flow Rate FiO2 04/03/20 12:44 98.0 59 18 97/61 98 Room Air Home Meds Reported Medications Carvedilol (COREG) 12.5 Mg Tab, 6.25 MG PO BID 12/04/15 Tamsulosin Hcl (TAMSULOSIN HCL) 0.4 Mg Cap.er.24h, 0.4 MG PO DAILY 12/02/15 Folic Acid (FOLIC ACID) 1 Mg Tablet, 800 MCG PO DAILY, #30 TAB 12/02/15 Cholecalciferol (Vitamin D) 1,000 Unit Tablet, 1 MT DAILY 11/25/10 Ascorbic Acid (Vitamin C) 1,000 Mg Tablet.sa, 1 MT DAILY 11/25/10 Multivitamins (Vitamin A Day) 1 Each Tablet, 1 MT DAILY 11/25/10 [place]-3 Fatty Acids/Fish Oil (Fish Oil 1,000 Mg Capsule) 1 Each Capsule, 1 MT 3 TIMES PER DAY 11/25/10 Lansoprazole (Prevacid) 30 Mg Tab.rap., 1 MT DAILY 11/25/10 Niacin (Slo-Niacin) 500 Mg Tablet.sa, 1 MT DAILY 11/25/10 Isosorbide Mononitrate (Isosorbide Mononitrate) 30 Mg Tab.sr.24h, 1 MT DAILY 11/25/10 Atorvastatin Calcium (Lipitor) 40 Mg Tablet, 1 MT DAILY 11/25/10 Ezetimibe (Zetia) 10 Mg Tablet, 1 MT DAILY 11/25/10 SAI CHRISTENSEN MD Apr 03, 2020 14:23
[2020-04-03] MEDS ORDERED: SODIUM CHLORIDE 0.9% 500ML 500 ML IV ONE ×2 (14:30)
[2020-04-03] MEDS ORDERED: SODIUM CHLORIDE 0.9% 500ML 1,000 ML ONE (14:32)
[2020-04-03] MEDS ORDERED: IOPAMIDOL 370 MG/ML 200 ML INFUS..BTL INJ ONE (14:50)
[2020-04-03] MEDS ORDERED: SODIUM CHLORIDE 0.9% 50ML 50 ML ONE (14:50)
--- NOTE | 2020-04-03 16:12 | Diagnostic Imaging Report ---
CT of the abdomen and pelvis with contrast TECHNIQUE: CT of the abdomen and pelvis WITH intravenous contrast and WITHOUT oral contrast. Dose modulation, iterative reconstruction, and/or weight-based adjustment of the mA/kV was utilized to reduce the radiation dose to as low as reasonably achievable. IV CONTRAST: 100 mL of Isovue-370 ORAL CONTRAST: None RADIATION DOSE: Total DLP: 307 mGy*cm COMPLICATIONS: None INDICATION: ^melena, abdominal discomfort ^[id number] ^[id number]. COMPARISON: 05/09/2014. FINDINGS: LOWER THORAX: Unremarkable. HEPATOBILIARY: No suspicious solid hepatic lesions. There is minimal bilateral subcentimeter hypodense lesions, too small to accurately characterize although statistically related cysts. Gallbladder is surgically absent. Moderate central and extrahepatic biliary dilatation is noted. SPLEEN: No splenomegaly. PANCREAS: No focal masses or ductal dilatation. ADRENALS: No adrenal nodules. KIDNEYS/URETERS: Asymmetric mild atrophy of the right kidney is noted. Symmetric cortical enhancement is noted without hydronephrosis or suspicious mass. Nonobstructing 3 mm left inferior pole calculus is noted. Left inferior pole cortical cyst is noted. No surrounding fluid collection is noted. PELVIC ORGANS/BLADDER: Urinary bladder is mildly distended and unremarkable. Prostate is within normal limits for size. PERITONEUM/RETROPERITONEUM: No free air or fluid. Bilateral fat-containing inguinal hernias are noted. A portion of the terminal ileum does approach the neck and origin of the hernia but does not enter the deeper parts of the hernia are no evidence of obstruction. LYMPH NODES: No lymphadenopathy. VESSELS: Negative for abdominal aortic aneurysm. GI TRACT: Small amount of oral contrast is noted within terminal ileum and cecum. Stomach is decompressed limiting evaluation. No evidence of obstruction. No surrounding inflammatory changes are identified. Moderate to severe colonic stool retention is noted. Normal appendix is noted. BONES AND SOFT TISSUES: No acute osseous abnormality. 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 Soft tissues are unremarkable. IMPRESSION: 1. Moderate to severe colonic stool retention, most prominent at the rectum concerning for constipation. No evidence of small bowel obstruction. No surrounding inflammatory changes or wall thickening to suggest colitis. Stomach is decompressed limiting evaluation. 2. Bilateral fat-containing inguinal hernias. Bowel loops are not identified within the hernia sacs however within the right internal canal the terminal ileum does approach the origin. 3. Multiple subcentimeter hypodense lesions of the liver are indeterminant and too small to characterize. Statistically these relate to cysts. 4. Post surgical changes from cholecystectomy with central and extra hepatic biliary dilatation, likely normal for patient's age and postsurgical state. 5. Nonobstructing left 3 mm inferior pole renal calculus. Mild asymmetric atrophy of the right kidney is noted. Signed by: Unruly Smith MD on 04/03/2020 4:08 PM
[2020-04-03 17:27] VITALS: BP 113/69
[2020-04-05] MEDS ORDERED: VITAMIN A8000 UNIT PO (11:47)
[2020-04-05] MEDS ORDERED: WARFARIN SODIUM1 MG PO (11:47)
[2020-04-05] MEDS ORDERED: AMIODARONE HCL200 MG PO (11:47)
[2020-04-05] MEDS ORDERED: PROTONIX20 MG PO (11:47)
[2020-04-05] MEDS ORDERED: VITAMIN D310 MCG PEG (11:47)
[2020-04-05] MEDS ORDERED: LOSARTAN POTASS25 MG PO (11:47)
== END 2020-04-03 17:40 | disposition home or self-care (01) ==
LOC: ER 13:39
DX: K92.1 Melena (principal); I10 Essential (primary) hypertension; E78.5 Hyperlipidemia, unspecified; I48.91 Unspecified atrial fibrillation; K21.9 Gastro-esophageal reflux disease without esophagitis; I25.2 Old myocardial infarction; Z95.810 Presence of automatic (implantable) cardiac defibrillator; Z85.828 Personal history of other malignant neoplasm of skin
CPT/HCPCS: 36415; 74177; 80053; 81001; 83690; 85025; 85610; 93005; 99284; J7040; Q9967

== ENCOUNTER → 2020-04-11 | Day surgery (SDC) | payer OTHER ==
[~2020-04-11] MED LIST changes: +AMIODARONE HCL200 MG PO; +FENTANYL CITRATE/PF 100MCG/2 ML INJ ONE; +MIDAZOLAM HCL 2 MG/2 ML VIAL ONE; +PROPOFOL IV EMULSION 10 MG/ML 20 ML VIAL ONE; +PROTONIX20 MG PO; +VITAMIN A8000 UNIT PO; +VITAMIN D310 MCG PEG; +WARFARIN SODIUM1 MG PO
[2020-04-11 10:09] LABS: INR 1.29; PROTHROMBIN TIME 16.7 seconds (11.9-14.5)
[2020-04-11 10:10] LABS: PARTIAL THROMBOPLASTIN TIME 30.5 seconds (23.8-35.5)
[2020-04-11 11:05] VITALS: BP 139/89
== END | disposition home or self-care (01) ==
LOC: OR 07:06
PROVIDERS: ATTEND Internal Medicine Gastroenterology
DX: K29.50 Unspecified chronic gastritis without bleeding (principal); K22.2 Esophageal obstruction; K44.9 Diaphragmatic hernia without obstruction or gangrene; Z71.3 Dietary counseling and surveillance; I11.0 Hypertensive heart disease with heart failure; I50.9 Heart failure, unspecified; I25.2 Old myocardial infarction; N20.0 Calculus of kidney; E66.3 Overweight; Z01.812 Encounter for preprocedural laboratory examination; Z11.59 Encounter for screening for other viral diseases; Z79.01 Long term (current) use of anticoagulants; Z68.25 Body mass index [BMI] 25.0-25.9, adult; Z95.810 Presence of automatic (implantable) cardiac defibrillator; Z87.891 Personal history of nicotine dependence
CPT/HCPCS: 36415; 43239; 85610; 85730; 88305; 88312; J2704; U0002; J2250; J3010

== ENCOUNTER 2020-04-25 14:18 | Emergency (ER) | payer OTHER ==
[~2020-04-25] VITALS: Ht 172.7 cm; Wt 77.1 kg
[~2020-04-25 14:18] MED LIST changes: -FENTANYL CITRATE/PF 100MCG/2 ML INJ ONE; -MIDAZOLAM HCL 2 MG/2 ML VIAL ONE; -PROPOFOL IV EMULSION 10 MG/ML 20 ML VIAL ONE
[2020-04-25] MEDS ORDERED: SODIUM CHLORIDE 0.9% 1000ML 1,000 ML IV SCH (15:30)
[2020-04-25] MEDS ORDERED: SODIUM CHLORIDE FLUSH 10 ML SYR INJ PRN (15:30)
[2020-04-25 15:32] LABS: BASOPHILS % 0.6 % (0.0-1.0); EOSINOPHILS # (AUTO) 0.1 (0.0-0.4); EOSINOPHILS % 0.9 % (0.0-6.0); HEMATOCRIT 47.5 % (38.2-49.6); LYMPHOCYTES # (AUTO) 0.9 (1.0-3.2); LYMPHOCYTES % 14.7 % (18.0-39.1); MEAN CORPUSCULAR HEMOGLOBIN 30.7 pg (28-32); MEAN CORPUSCULAR HGB CONC 33.7 g/dL (31-35); MEAN CORPUSCULAR VOLUME 91.2 fL (81-99); MONOCYTES # (AUTO) 0.7 (0.2-0.8); NEUTROPHILS # (AUTO) 4.6 (2.1-6.9); NEUTROPHILS % 71.9 % (38.7-80.0); PLATELET COUNT 242 x10e3/uL (140-360); RED BLOOD COUNT 5.21 x10e6/uL (4.3-5.7); RED CELL DISTRIBUTION WIDTH 14.9 % (11.7-14.4)
[2020-04-25 15:46] LABS: ALBUMIN 3.5 g/dL (3.5-5.0); ALBUMIN/GLOBULIN RATIO 0.8 (0.8-2.0); ANION GAP 15.3 mmol/L (8-16); CALCIUM 8.9 mg/dL (8.4-10.2); CREATININE, SERUM 1.17 mg/dL (0.72-1.25); POTASSIUM 4.3 mmol/L (3.5-5.1)
[2020-04-25 16:29] LABS: CLARITY,URINE SL CLOUDY (CLEAR); COLOR,URINE YELLOW (YELLOW)
[2020-04-25 16:30] LABS: BILIRUBIN,URINE NEGATIVE (NEGATIVE); KETONES,URINE NEGATIVE (NEGATIVE); LEUKOCYTE ESTERASE ,URINE NEGATIVE (NEGATIVE); NITRITE,URINE NEGATIVE (NEGATIVE); PROTEIN,URINE DIPSTICK NEGATIVE (NEGATIVE); URINE UROBILINOGEN 1 mg/dL (0.2 - 1)
--- NOTE | 2020-04-25 16:37 | Diagnostic Imaging Report ---
CT of the abdomen and pelvis with contrast TECHNIQUE: CT of the abdomen and pelvis WITH intravenous contrast and WITHOUT oral contrast. Dose modulation, iterative reconstruction, and/or weight-based adjustment of the mA/kV was utilized to reduce the radiation dose to as low as reasonably achievable. IV CONTRAST: 100 mL of Isovue-370 ORAL CONTRAST: None RADIATION DOSE: Total DLP: 375 mGy*cm COMPLICATIONS: None INDICATION: ^PAIN WITH IV CONTRAST// ONLY DO IF GFR IS NORMAL ^[id number] ^[id number]. COMPARISON: CT dated 04/03/2020. FINDINGS: LOWER THORAX: Emphysematous changes are noted. Basilar scarring is noted.. HEPATOBILIARY: Stable multiple subcentimeter bilateral hypodense lesions. No suspicious solid hepatic lesion. Gallbladder is surgically absent. Stable mild central and extrahepatic biliary dilatation. SPLEEN: No splenomegaly. PANCREAS: No focal masses or ductal dilatation. ADRENALS: No adrenal nodules. KIDNEYS/URETERS: Stable asymmetric atrophy of the right kidney. Symmetric cortical enhancement without hydronephrosis or suspicious mass. Stable punctate left inferior pole nonobstructing 3 mm renal calculus. Stable inferior pole hyperdense cyst. Ureters are not dilated. PELVIC ORGANS/BLADDER: Urinary bladder is moderately distended and unremarkable. Prostate is enlarged with mass effect on the posterior bladder wall. PERITONEUM/RETROPERITONEUM: No free air or fluid. Bilateral fat-containing inguinal hernias are noted. A portion of the terminal ileum does approach the neck and origin of the right inguinal hernia but does not enter the deeper parts of the hernia. No evidence of obstruction or incarceration. LYMPH NODES: No lymphadenopathy. VESSELS: Negative for abdominal aortic aneurysm. GI TRACT: Stomach is decompressed. Small hiatal hernia is noted. Negative for bowel obstruction. Normal appendix is noted. Mild to moderate stool burden is noted throughout the colon there is questionable wall thickening of the transverse colon versus artifact of underdistention. No pericolonic fluid collection is noted. BONES AND SOFT TISSUES: No acute osseous abnormality. Severe degenerative changes of the lower lumbar spine are noted with vacuum phenomena, disc space narrowing and facet arthropathy. Soft tissues are unremarkable.. IMPRESSION: 1. Question mild transverse colonic wall thickening which can be seen in patients with colitis. No significant surrounding fundus for a change or drainable fluid collection is noted. Normal appendix is noted. Negative for bowel obstruction. Mild to moderate stool burden is noted throughout the colon. 2. Stable chronic findings including nonobstructive left inferior pole renal calculus, prostatomegaly, bilateral fat-containing hernias, indeterminate multiple subcentimeter hypodense lesions of the liver and postsurgical changes from cholecystectomy with probable normal for age and post cholecystectomy state mild central and extrahepatic biliary dilatation. Signed by: Unruly Smith MD on 04/25/2020 4:34 PM
[2020-04-25 16:46] LABS: AMORPHOUS SEDIMENT,URINE MODERATE (FEW); BACTERIA,URINE FEW /HPF
[2020-04-25] MEDS ORDERED: IOPAMIDOL 370 MG/ML 200 ML INFUS..BTL INJ ONE (16:46)
[2020-04-25] MEDS ORDERED: SODIUM CHLORIDE 0.9% 50ML 50 ML ONE (16:46)
[2020-04-25] MEDS ORDERED: ONDANSETRON ODT8 MG PO (17:41)
[2020-04-25] MEDS ORDERED: FLAGYL500 MG PO (17:41)
[2020-04-25] MEDS ORDERED: PREDNISONE20 MG PO (17:41)
[2020-04-25] MEDS ORDERED: AUGMENTIN 875-1 EACH PO (17:41)
--- NOTE | 2020-04-25 17:42 | Emergency Department Note ---
History of Present Illnes History of Present Illness Chief Complaint: Abdominal Complaints History of Present Illness This is a 79 year old male . Historian: Patient Arrival Mode: Car Past Medical/Family History Physician Review I have reviewed the patient's past medical and family history. Any updates have been documented here. Past Medical History Recent Fever: No Clinical Suspicion of Infectio: No New/Unexplained Change in Ment: No Past Medical History: Hypertension, UTI's Other Medical History: PROSTATE PROBLEMS, Past Surgical History: Pacer/AICD Other Surgery: DEFIBRILLATOR PLACEMENT Other Last Tetanus: UNK Physical Exam Related Data Allergies: Coded Allergies: No Known Drug Allergies (Verified Allergy, Mild, 03/26/19) Triage Vital Signs Vital Signs Date Time Temp Pulse Resp B/P (MAP) Pulse Ox O2 Delivery O2 Flow Rate FiO2 04/25/20 14:26 98.3 72 18 167/95 100 Room Air Physical Exam CONSTITUTIONAL HENT EYES NECK PULMONARY CARDIOVASCULAR GASTROINTESTINAL GENITOURINARY SKIN MUSCULOSKELETAL NEUROLOGICAL PSYCHOLOGICAL Results Laboratory Result Diagram: 04/25/20 1429 04/25/20 1429 Laboratory Laboratory Tests Test 04/25/20 16:20 04/25/20 14:29 Urine Color Yellow (YELLOW) Urine Clarity Sl cloudy (CLEAR) Urine pH 6 (5 - 7) Urine Specific [place] 1.025 (1.010-1.025) Urine Protein Negative (NEGATIVE) Urine Glucose (UA) Negative (NEGATIVE) Urine Ketones Negative (NEGATIVE) Urine Blood Negative (NEGATIVE) Urine Nitrite Negative (NEGATIVE) Urine Bilirubin Negative (NEGATIVE) Urine Urobilinogen 1 mg/dL (0.2 - 1) Urine Leukocyte Esterase Negative (NEGATIVE) Urine RBC None /HPF (0-5) Urine WBC None /HPF (0-5) Urine Epithelial Cells None /LPF (NONE) Urine Amorphous Sediment Moderate (FEW) Urine Bacteria Few /HPF (NONE) White Blood Count 6.34 x10e3/uL (4.8-10.8) Red Blood Count 5.21 x10e6/uL (4.3-5.7) Hemoglobin 16.0 g/dL (14.0-18.0) Hematocrit 47.5 % (38.2-49.6) Mean Corpuscular Volume 91.2 fL (81-99) Mean Corpuscular Hemoglobin 30.7 pg (28-32) Mean Corpuscular Hemoglobin Concent 33.7 g/dL (31-35) Red Cell Distribution Width 14.9 % (11.7-14.4) Platelet Count 242 x10e3/uL (140-360) Neutrophils (%) (Auto) 71.9 % (38.7-80.0) Lymphocytes (%) (Auto) 14.7 % (18.0-39.1) Monocytes (%) (Auto) 11.0 % (4.4-11.3) Eosinophils (%) (Auto) 0.9 % (0.0-6.0) Basophils (%) (Auto) 0.6 % (0.0-1.0) Neutrophils # (Auto) 4.6 (2.1-6.9) Lymphocytes # (Auto) 0.9 (1.0-3.2) Monocytes # (Auto) 0.7 (0.2-0.8) Eosinophils # (Auto) 0.1 (0.0-0.4) Basophils # (Auto) 0.0 (0.0-0.1) Absolute Immature Granulocyte (auto 0.06 x10e3/uL (0-0.1) Sodium Level 138 mmol/L (136-145) Potassium Level 4.3 mmol/L (3.5-5.1) Chloride Level 101 mmol/L (98-107) Carbon Dioxide Level 26 mmol/L (22-29) Anion Gap 15.3 mmol/L (8-16) Blood Urea Nitrogen 15 mg/dL (7-26) Creatinine 1.17 mg/dL (0.72-1.25) Estimat Glomerular Filtration Rate 60 ML/MIN (60-) BUN/Creatinine Ratio 13 (6-25) Glucose Level 114 mg/dL (74-118) Calcium Level 8.9 mg/dL (8.4-10.2) Total Bilirubin 1.1 mg/dL (0.2-1.2) Aspartate Amino Transf (AST/SGOT) 207 IU/L (5-34) Alanine Aminotransferase (ALT/SGPT) 187 IU/L (0-55) Alkaline Phosphatase 165 IU/L (40-150) Total Protein 7.7 g/dL (6.5-8.1) Albumin 3.5 g/dL (3.5-5.0) Globulin 4.2 g/dL (2.3-3.5) Albumin/Globulin Ratio 0.8 (0.8-2.0) Lab results reviewed: Yes Imaging Imaging results reviewed: Yes Impressions [place] [id number] Patient Name: SHANNON PALMER MR #: [id number] : 1940 Age/Sex: 79/M Req #: [id number] Adm Physician: Ordered by: DREA MCKEON Report #: [id number] Location: ER Room/Bed: Procedure: [id number] CT/CT ABDOMEN/PELVIS W Exam Date: 04/25/20 Exam Time: 1612 REPORT STATUS: Signed CT of the abdomen and pelvis with contrast TECHNIQUE: CT of the abdomen and pelvis WITH intravenous contrast and WITHOUT oral contrast. Dose modulation, iterative reconstruction, and/or weight-based adjustment of the mA/kV was utilized to reduce the radiation dose to as low as reasonably achievable. IV CONTRAST: 100 mL of Isovue-370 ORAL CONTRAST: None RADIATION DOSE: Total DLP: 375 mGy*cm COMPLICATIONS: None INDICATION: ^PAIN WITH IV CONTRAST// ONLY DO IF GFR IS NORMAL ^[id number] ^1613. COMPARISON: CT dated 04/03/2020. FINDINGS: LOWER THORAX: Emphysematous changes are noted. Basilar scarring is noted.. HEPATOBILIARY: Stable multiple subcentimeter bilateral hypodense lesions. No suspicious solid hepatic lesion. Gallbladder is surgically absent. Stable mild central and extrahepatic biliary dilatation. SPLEEN: No splenomegaly. PANCREAS: No focal masses or ductal dilatation. ADRENALS: No adrenal nodules. KIDNEYS/URETERS: Stable asymmetric atrophy of the right kidney. Symmetric cortical enhancement without hydronephrosis or suspicious mass. Stable punctate left inferior pole nonobstructing 3 mm renal calculus. Stable inferior pole hyperdense cyst. Ureters are not dilated. PELVIC ORGANS/BLADDER: Urinary bladder is moderately distended and unremarkable. Prostate is enlarged with mass effect on the posterior bladder wall. PERITONEUM/RETROPERITONEUM: No free air or fluid. Bilateral fat-containing inguinal hernias are noted. A portion of the terminal ileum does approach the neck and origin of the right inguinal hernia but does not enter the deeper parts of the hernia. No evidence of obstruction or incarceration. LYMPH NODES: No lymphadenopathy. VESSELS: Negative for abdominal aortic aneurysm. GI TRACT: Stomach is decompressed. Small hiatal hernia is noted. Negative for bowel obstruction. Normal appendix is noted. Mild to moderate stool burden is noted throughout the colon there is questionable wall thickening of the transverse colon versus artifact of underdistention. No pericolonic fluid collection is noted. BONES AND SOFT TISSUES: No acute osseous abnormality. Severe degenerative changes of the lower lumbar spine are noted with vacuum phenomena, disc space narrowing and facet arthropathy. Soft tissues are unremarkable.. IMPRESSION: 1. Question mild transverse colonic wall thickening which can be seen in patients with colitis. No significant surrounding fundus for a change or drainable fluid collection is noted. Normal appendix is noted. Negative for bowel obstruction. Mild to moderate stool burden is noted throughout the colon. 2. Stable chronic findings including nonobstructive left inferior pole renal calculus, prostatomegaly, bilateral fat-containing hernias, indeterminate multiple subcentimeter hypodense lesions of the liver and postsurgical changes from cholecystectomy with probable normal for age and post cholecystectomy state mild central and extrahepatic biliary dilatation. Signed by: Tera Duncan MD on 04/25/2020 4:34 PM Dictated By: TERA DUNCAN MD [id number] Transcribed By: NIALL on 04/25/20 1634 COPY TO: DREA MCKEON~ Assessment & Plan Assessment & Plan Final Impression: (1) Colitis (2) Inguinal hernia (3) Elevated liver function tests (4) Dysuria (5) Benign prostatic hyperplasia Depart Disposition: HOME, SELF-CARE Last Vital Signs Date Time Temp Pulse Resp B/P (MAP) Pulse Ox O2 Delivery O2 Flow Rate FiO2 04/25/20 14:26 98.3 72 18 167/95 100 Room Air Home Meds Active Scripts Ondansetron (ONDANSETRON ODT) 8 Mg Tab.rapdis, 4 MG PO Q4HR PRN for NAUSEA AND VOMITING, #20 TAB Prov:DREA MCKEON 04/25/20 Prednisone (PREDNISONE) 20 Mg Tab, 60 MG PO DAILY, #15 TAB TAKE ALL 3 20 MG PILLS AT ONCE Prov:DREA MCKEON 04/25/20 Metronidazole (FLAGYL) 500 Mg Tablet, 500 MG PO Q8H, #30 TAKE WITH JUICE AND FOOD Prov:DREA MCKEON 04/25/20 Amoxicillin/Potassium Clav (AUGMENTIN 875-125 TABLET) 1 Each Tablet, 875 MG PO Q12H, #20 TAB Prov:DREA MCKEON 04/25/20 Reported Medications Warfarin Sodium (WARFARIN SODIUM) 1 Mg Tablet, 1 MG PO DAILY, #30 TAB 04/05/20 Pantoprazole Sodium (PROTONIX) 20 Mg Tablet.dr, 40 MG PO DAILY, #30 TAB 04/05/20 Cholecalciferol (Vitamin D3) (Vitamin D3) 10 Mcg Capsule, PEG DAILY 04/05/20 Vitamin A (VITAMIN A) 8,000 Unit Capsule, PO DAILY 04/05/20 Amiodarone Hcl (AMIODARONE HCL) 200 Mg Tablet, 200 MG PO DAILY 04/05/20 Losartan Potassium (LOSARTAN POTASSIUM) 25 Mg Tablet, 25 MG PO DAILY 04/05/20 Carvedilol (COREG) 12.5 Mg Tab, 12.5 MG PO BID 12/04/15 Tamsulosin Hcl (TAMSULOSIN HCL) 0.4 Mg Cap.er.24h, 0.4 MG PO DAILY 12/02/15 Folic Acid (FOLIC ACID) 1 Mg Tablet, 800 MCG PO DAILY, #30 TAB 12/02/15 Ascorbic Acid (Vitamin C) 1,000 Mg Tablet.sa, 1000 MG PO DAILY 11/25/10 Medications in the ED Sodium Chloride 10 ml PRN PRN INJ IV SITE FLUSH Last administered on 04/25/20at 16:00; Admin Dose 10 ML; Start 04/25/20 at 15:30; Stop 05/25/20 at 15:29 Sodium Chloride 1,000 ml @ 1,000 mls/hr Q1H IV Last administered on 04/25/20at 16:40; Admin Dose 1,000 MLS/HR; Start 04/25/20 at 15:30; Stop 04/25/20 at 16:29; Status DC Sodium Chloride 50 ml @ ud STK-MED ONCE .ROUTE ; Start 04/25/20 at 16:46; Stop 04/25/20 at 16:40; Status DC Iopamidol 74,000 mg STK-MED ONCE INJ ; Start 04/25/20 at 16:46; Stop 04/25/20 at 16:40; Status DC DREA MCKEON Apr 25, 2020 17:42
== END 2020-04-25 18:45 | disposition home or self-care (01) ==
LOC: ER 14:24
DX: K52.9 Noninfective gastroenteritis and colitis, unspecified (principal); N40.1 Benign prostatic hyperplasia with lower urinary tract symptoms; R30.0 Dysuria; R94.5 Abnormal results of liver function studies; K40.90 Unilateral inguinal hernia, without obstruction or gangrene, not specified as recurrent
CPT/HCPCS: 36415; 74177; 80053; 81001; 85025; 93005; 99284; J7030; Q9967

== ENCOUNTER 2020-06-15 15:43 | Emergency (ER) | payer OTHER ==
[~2020-06-15] VITALS: Ht 170.2 cm; Wt 79.4 kg
[~2020-06-15 15:43] MED LIST changes: +AUGMENTIN 875-1 EACH PO; +FLAGYL500 MG PO; +ONDANSETRON ODT8 MG PO; +PREDNISONE20 MG PO
--- OUTSIDE RECORDS SUMMARY | 2020-06-15 16:02 | XMS REPORT | Continuity of Care Document ---
Author Author [facility] t Organization [facility] Address [address] [place] [address] Phone Unavailable Care Team Providers Care Ekg Technician Name Role Phone GILMA FLORES, MD RUIZ PCP Ashutosh MCKEON Attphys Unavailable Irene Ribera Attphys Unavailable Coco Regalado Attphys Payers Payer Name Policy Type Policy Number Effective Date Expiration Date Cayla Boland Plus [id number] 2015 00:00:00 [facility] Cdc Review Covid19 [id number] [facility] Problems Condition Name Condition Details Condition Category Status Onset Date Resolution Date Last Treatment Date Treating Clinician Comments Source NATTYK NATTYK Active 02/16/2017 [facility] Active 2017-02-16 00:00:00 2017-03-11 07:36:00 [facility] Pease Anemia Anemia Problem Active 2015-12-02 00:00:00 [facility] 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 Problem Active 2015-12-02 00:00:00 [facility] Melena Problem Active [facility] Colitis Problem Active [facility] Inguinal hernia Problem Active [facility] Elevated liver function tests Problem Active [facility] Dysuria Problem Active [facility] Benign prostatic hyperplasia Problem Active [facility] Chronic systolic heart failure (disorder) Chronic systolic heart failure (disorder) Active Problem 03/05/2017 [facility] Problem Active 2017-03-05 00:48:49 Dante Ogden Hyperlipidemia (disorder) Justice rlipidemia (disorder) Active Problem 03/05/2017 [facility] Problem Active 2017-03-05 00:4 8:49 Nancy Ogden Hypertensive disorder, systemic arterial (disorder) Hypertensive disorder, systemic arterial (disorder) Active Problem 03/05/2017 [facility] Problem Active 2017-03-05 00:48:49 Nancy Ogden History of - myocardial infarction (context-dependent category) History of - myocardial infarction (context-dependent category) Active Problem 03/05/2017 [facility] Problem Active 2017-03-05 00:48:4 9 Nancy Ogden Allergies, Adverse Reactions, Alerts This patient has no known allergies or adverse reactions. Social History Social Habit Start Date Stop Date Quantity Comments Source Sex Assigned At Yann rip Gannon Tobacco use and exposure 2018-08-12 00:00:00 2018-08-12 00:00:00 Andrewe r used Sidney Gannon Alcohol intake 2018-08-12 00:00:00 2018-08-12 00:00:00 Current drinker of alcohol (finding) Sidney Gannon Alcohol Comment 2017-11-29 00:00:00 2017-11-29 00:00:00 occasional Sidney Gannon Social History 2017-02-26 20:44:39 2017-02-26 20:44:39 Nancy Ogden Smoking Status Start Date Stop Date Source Never smoker Sidney leahy Medications Ordered Medication Name Filled Medication Name Start Date Stop Da te Current Medication? Ordering Clinician Indication Dosage Frequency Signature (SIG) Comments Components Source Amoxicillin/Potassium Clav (Augmentin 875-125 Tablet) 1 Each TABLET Amoxicillin/Potassium Clav (Augmentin 875-125 Tablet) 1 Each TABLET 2020-04-25 17:41:00 Yes 875 Every 12 Hours [facility] Metronidazole (Flagyl) 500 Mg TABLET Metronidazole (Flagyl) 500 Mg TABLET 2020-04-25 17:41:00 Yes 500 Every 8 Hours [facility] Ondansetron (Ondansetron Odt) 8 Mg TAB.RAPDIS Ondanset celia (Ondansetron Odt) 8 Mg TAB.RAPDIS 2020-04-25 17:41:00 Yes 4 E very 4 Hours as needed for Nausea And Vomiting [facility] Prednisone Prednisone 2020-04-25 17:41:00 Yes 60 Julieta ly [facility] folic acid (FOLVITE) 1 MG tablet 2018-08-12 10:54:41 Yes 1mg QD Take 1 mg by mouth daily. Sidney Gannon ascorbic acid, vitamin C, (VITAMIN C) 500 MG tablet 08-12 10:54:41 Yes 500mg QD Take 500 mg by mouth daily. Sidney Gnanon vitamin A 44781 UNIT capsule 2018-08-12 10:54:41 Yes [id number] QD Take 10,000 Units by mouth daily. Sidney coreas cholecalciferol, vitamin D3, (VITAMIN D3) 1,000 unit tablet 2018-08-12 10:54:41 Yes 1000U QD Take 1,000 Units by mouth julieta weir. Sidney Gannon pantoprazole (PROTONIX) 40 MG EC [...] 14:00:00 No Notes: (Jesse e as: Cozaar) [facility] Alin tamsulosin 2017-03-02 02:00:00 No Notes: (Same As: Flomax) "Do Not Crush" [facility] Alin pantoprazole 2017-03-02 02:00:00 No Notes: Tablet should [...] I njection 2017-03-01 16:40:00 No Notes: (lidocaine-epi 1%-1:03208 30 ml AMP (PF)) Preservative-free (Same as: Xylocaine-MPF w/Epinephrine) Nancy Ogden warfarin 1 mg oral tablet 2017-02-26 21:03:00 Yes 1 mg = 1 tab, PO, Daily, # 30 tab, 0 Refill(s) Nancy martínez pantoprazole 40 mg oral enteric coated tablet 2017-02-26 21:02:0 0 Yes 40 mg = 1 tab, PO, Daily, # 30 tab, 0 Refill(s) Nancy Ogden tamsulosin 0.4 mg oral capsule 2017-02-26 21:02:00 Yes 0.4 mg = 1 cap, PO, Daily, # 30 cap, 0 Refill(s) Me florencetaylor Ogden losartan 25 mg oral tablet 2017-02-26 21:01:00 Yes 25 mg = 1 tab, PO, Daily, # 30 tab, 1 Refill(s) Arin rosario Pease carvedilol 12.5 mg oral tablet 2017-02-26 21:01:00 Yes 12.5 mg = 1 tab, PO, BID, # 180 tab, 0 Refill(s) Brianne Ogden atorvastatin 80 mg oral tablet 2017-02-26 21:01:00 Yes 80 mg = 1 tab, PO, Bedtime, # 30 tab, 0 Refill(s) Nancy Ogden Amiodarone Hcl Amiodarone Hcl Yes 200 Daily [facility] Ascorbic Acid (Vitamin C) 1,000 Mg TABLET.SA Ascorbic Acid (Vitamin C) 1,000 Mg TABLET.SA Yes 1000 Daily [facility] Carvedilol (Coreg) 12.5 Mg TAB Carvedilol (Coreg) 12.5 Mg TAB Yes 12.5 Twice A Day [facility] Cholecalciferol (Vitamin D3) (Vitamin D3) 10 Mcg CAPSU LE Cholecalciferol (Vitamin D3) (Vitamin D3) 10 Mcg CAPSULE Yes Daily [facility] Folic Acid Folic Acid Yes 800 Daily [facility] Losartan Potassium Losartan Potassium Yes 25 Da yvette [facility] Pantoprazole Sodium (Protonix) 20 Mg TABLET. Pantopr azole Sodium (Protonix) 20 Mg TABLET. Yes 40 Daily [facility] Tamsulosin Hcl Tamsulosin Hcl Yes .4 Daily [facility] Vitamin A Vitamin A Yes Daily [facility] Warfarin Sodium Warfarin Sodium Yes 1 Daily [facility] Atorvastatin Calcium (Lipitor) 40 Mg TABLET Atorvastat in Calcium (Lipitor) 40 Mg TABLET 2020-04-05 00:00:00 No 1 Daily [facility] Cholecalciferol (Vitamin D) 1,000 Unit TABLET Cholecal ciferol (Vitamin D) 1,000 Unit TABLET 2020-04-05 00:00:00 No 1 Daily [facility] Ezetimibe (Zetia) 10 Mg TABLET Ezetimibe (Zetia) 10 Mg TABLET 2020-04-05 00:00:00 No 1 Daily [facility] Isosorbide Mononitrate Isosorbide Mononitrate 2020-04-05 00:00:00 No 1 Daily [facility] Lansoprazole (Prevacid) 30 Mg TAB.RAP. Lansoprazole (Prevacid) 30 Mg TAB.RAP. 2020-04-05 00:00:00 No 1 Daily [facility] Multivitamins (Vitamin A Day) 1 Each TABLET Multivitam ins (Vitamin A Day) 1 Each TABLET 2020-04-05 00:00:00 No 1 Daily [facility] Niacin (Slo-Niacin) 500 Mg TABLET. Niacin (Slo-Niacin) 500 Mg TABLET.SA 2020-04-05 00:00:00 No 1 Daily [facility] Lincoln-3 Fatty Acids/Fish Oil (Fish Oil 1,000 Mg Capsul e) 1 Each CAPSULE Lincoln-3 Fatty Acids/Fish Oil (Fish Oil 1,000 Mg Capsule) 1 Each CAPSULE 2020-04-05 00:00:00 No 1 3 Times Per Day [facility] Aspirin (Ecotrin) 325 Mg TABLET. Aspirin (Ecotrin) 325 Mg TABAshutosh ET. 2015-12-04 00:00:00 No 1 Daily [facility] Carvedilol Carvedilol 2015-12-04 00:00:00 No 1 2 T imes Per Day [facility] Garlic Garlic 2015-12-04 00:00:00 No 1 Daily [facility] Irbesartan (Avapro) 150 Mg TABLET Irbesartan (Avapro) 150 Mg TAB LET 2015-12-04 00:00:00 No 1 Daily [facility] Losartan Potassium Losartan Potassium 2015-12-04 00:00:00 No 50 Daily [facility] Vitamin E Mixed (Vitamin E) 1,000 Unit CAPSULE Vitamin E Mixed (Vitamin E) 1,000 Unit CAPSULE 2015-12-04 00:00:00 No 1 Daily [facility] Warfarin Sodium Warfarin Sodium 2015-12-04 00:00:00 No 2.5 Daily [facility] Vital Signs Vital Name Observation Time Observation Value Comments Source Weight 2020-04-25 14:26:00 170 [lb_av] [facility] BMI (Body Mass Index) 2020-04-25 14:26:00 25.8 kg/m2 [facility] Body Temperature 2020-04-11 10:41:00 98.5 [degF] [facility] Weight 2020-04-03 12:44:00 175 [lb_av] [facility] BMI (Body Mass Index) 2020-04-03 12:44:00 26.6 kg/m2 [facility] Systolic (mm Hg) 2017-03-02 12:57:00 Medardo rial Pease Diastolic (mm Hg) 2017-03-02 12:57:00 Mem orial [facility] Respitory Rate 2017-03-02 12:57:00 Memori al [facility] Heart Rate 2017-03-02 12:57:00 [facility] Temperature Oral (F) 2017-03-02 12:57:00 98.1 F [facility] Heart Rate 2017-03-02 09:00:00 [facility] Temperature Oral (F) 2017-03-02 09:00:00 98.3 F [facility] Respitory Rate 2017-03-02 09:00:00 Mem[facility] Systolic (mm Hg) 2017-03-02 09:00:00 Medardo rial Alin Diastolic (mm Hg) 2017-03-02 09:00:00 Mem orial Pease Heart Rate 2017-03-02 05:00:00 [facility] Temperature Oral (F) 2017-03-02 05:00:00 97.8 F [facility] Systolic (mm Hg) 2017-03-02 05:00:00 Medardo rial Alin Diastolic (mm Hg) 2017-03-02 05:00:00 Mem o[facility] Respitory Rate 2017-03-02 05:00:00 Memori [facility] BMI Calculated 2017-02-26 21:00:00 [facility] Weight 2017-02-26 21:00:00 [facility] Height 2017-02-26 21:00:00 170.18 cm [facility] Procedures Procedure Date / Time Performed Performing Clinician [facility] e Computed tomography of abdomen and pelvis with contrast 00:00:00 [facility] EGD BIOPSY SINGLE/MULTIPLE 2020-04-11 00:00:00 C HI [facility] Computed tomography of abdomen and pelvis with contrast 00:00:00 [facility] Cholecystectomy [facility] Colonoscopy [facility] ICD - Internal cardiac defibrillator procedure [facility] Plan of Care Planned Activity Planned Date Details Comments Source Future Scheduled Test 2020-03-02 00:00:00 INFLUENZA VACCINE [code = INFLUENZA VACCINE] [facility] Future Scheduled Test 2006 00:00:00 65+ PNEUMOCOCCAL V ACCINE (1 of 1 - PPSV23) [code = 65+ PNEUMOCOCCAL VACCINE (1 of 1 - PPSV23)] [facility] Future Scheduled Test 1991 00:00:00 SHINGLES VACCINES (#1) [code = SHINGLES VACCINES (#1)] [facility] Instructions Abdominal Pain - Adult [facility] Instructions Inguinal Hernia [facility] Encounters Start Date/Time End Date/Time Encounter Type Admission Type Attendi [facility] Care Department Encounter ID Source 2020-04-25 14:24:00 2020-04-25 18:45:00 Departed Emergency Room 1 DREA MCKEON [facility] [id number] [facility] 2020-04-11 07:06:00 2020-04-11 07:06:00 Registered Surgical Day Care [facility] [id number] [facility] 2020-04-03 13:39:00 2020-04-03 17:40:00 Departed Emergency Room 1 Sai Ribera [facility] [id number] [facility] 2019-03-26 16:47:00 2019-03-26 17:50:00 Departed Emergency Room [facility] [id number] [facility] 2017-03-01 11:11:00 2017-03-02 11:41:00 Outpatient Tere Regalado [facility] [id number] Results Test Description Test Time Test Comments Results Result Comments Source CT ABDOMEN/PELVIS W 2020-04-25 16:28:00 [facility] [address] [address] Patient Name: SHANNON PALMER MR #: [id number] : 1940 Age/Sex: 79/M Req #: [id number] Adm Physician: Ordered by: DREA MCKEON Report #: [id number] Location: ER Room/Bed: Procedure: [id number] CT/CT ABDOMEN/PELVIS W Exam Date: 04/25/20 Exam Time: 1612 REPORT STATUS: Signed CT of the abdomen and pelvis with contrast TECHNIQUE: CT of the abdomen and pelvis WITH intravenous contrast and WITHOUT oral contrast. Dose modulation, iterative reconstruction, and/or weight-based adjustment of the mA/kV was utilized to reduce the radi ation dose to as low as reasonably achievable. IV CONTRAST: 100 mL of Isovue-370 ORAL CONTRAST: None RADIATION DOSE: Total DLP: 375 mGy*cm COMPLICATIONS: None INDICATION: PAIN WITH IV CONTRAST// ONLY DO IF GFR IS NORMAL 20200425. COMPARISON: CT dated 04/03/2020. FINDINGS: LOWER THORAX: Emphysematous changes are noted. Basilar scarring is noted.. HEPATOBILIARY: Stable multiple subcentimeter bilateral hypodense lesions. No suspicious solid hepatic lesion. Gallbladder is surgically absent. Stable mild central and extrahepatic biliary dilatation. SPLEEN: No splenomegaly. PANCREAS: No focal masses or ductal dilatation. ADRENALS: No adrenal nodules. KIDNEYS/URETERS: Stable asymmetric atrophy of the right kidney. Symmetric cortical enhancement without hydronephrosis or suspicious mass. Stable punctate left inferior pole nonobstructing 3 mm renal calculus. Stable inferior pole hyperdense cyst. Ureters are not dilated. PELVIC ORGANS/BLADDER: Urinary bladder is moderately distended and unremarkable. Prostate is enlarged with mass effect on the posterior bladder wall. PERITONEUM/RETROPERITONEUM: No free air or fluid. Bilateral fat-containing inguinal hernias are noted. A portion of the terminal ileum does approach the neck and origin of the right inguinal hernia but does not enter the deeper parts of the hernia. No evidence of obstruction or incarceration. LYMPH NODES: No lymphadenopathy. VESSELS: Negative for abdominal aortic aneurysm. GI TRACT: Stomach is decompressed. Small hiatal hernia is noted. Negative for bowel obstruction. Normal appendix is noted. Mild to moderate stool burden is noted throughout the colon there is questionable wall thickening of the transverse colon versus artifact of underdistention. No pericolonic fluid collection is noted. BONES AND SOFT TISSUES: No acute osseous abnormality. Severe degenerative changes of the low er lumbar spine are noted with vacuum phenomena, disc space narrowing and facet arthropathy. Soft tissues are unremarkable.. IMPRESSION: 1. Question mild transverse colonic wall thickening which can be seen in patients with colitis. No significant surrounding fundus for a change or drainable fluid collection is noted. Normal appendix is noted. Negative for bowel obstruction. Mild to moderate stool burden is noted throughout the colon. 2. Stable chronic findings including nonobstructive left inferior pole renal calculus, prostatomegaly, bilateral fat-containing hernias, indeterminate multiple subcentimeter hypodense lesions of the liver and postsurgical changes from cholecystectomy with probable normal for age and post cholecystectomy state mild central and extrahepatic biliary dilatation. Signed by: Tera Smith MD on 04/25/2020 4:34 PM Dictated By: TERA SMITH MD 1634 Transcribed By: NIALL on 04/25/20 1634 COPY TO: DREA MCKEON Urine color determination 2020-04-25 16:20:00 Test Item Urine Color (test code = 5778-6) YELLOW YELLOW [facility] [id number] 16:20:00* Test Item Value Reference Range Interpretation Comments Urine Clarity (test code = 42862-6) SL CLOUDY CLEAR [facility] Urine by Test strip 2020-04-25 16:20:00* Test Item Value Reference Range Interpretation Comments Urine Specific [place] (test code = 5811-5) 1.025 1.010-1.02 5 [facility] pH measurement by automated test [id number] 16:20:00* Test Item Value Reference Range Interpretation Comments Urine pH (test code = 80622-0) 6 5-7 [facility] leukocyte esterase detection by aajqmemo4738-04-31 16:20:00* Test Item Value Reference Range Interpretation Comments Urine Leukocyte Esterase (test code = 5799-2) NEGATIVE NEGATIVE [facility] nitrite [id number] 16:20:00* Test Item Value Reference Range Interpretation Comments Urine Nitrite (test code = 48911-9) NEGATIVE NEGATIVE [facility] protein measurement by test strip (mass/volume)2020-04-25 16:20:00* Test Item Value Reference Range Interpretation Comments Urine Protein (test code = 5804-0) NEGATIVE NEGATIVE [facility] glucose [id number] 16:20:00* Test Item Value Reference Range Interpretation Comments Urine Glucose (UA) (test code = 2349-9) NEGATIVE NEGATIVE [facility] ketones detection by automated test [id number] 16:20:00* Test Item Value Reference Range Interpretation Comments Urine Ketones (test code = 70909-4) NEGATIVE NEGATIVE [facility] urobilinogen measurement by test strip (mass/volume)2020-04-25 16:20:00* Test Item Value Reference Range Interpretation Comments Urine Urobilinogen (test code = 65830-5) 1 0.2-1 [facility] total bilirubin measurement (mass/volume)2020-04-25 16:20:00* Test Item Value Reference Range Interpretation Comments Urine Bilirubin (test code = 1978-6) NEGATIVE NEGATIVE [facility] erythrocytes [id number] 16:20:00* Test Item Value Reference Range Interpretation Comments Urine Blood (test code = 96109-2) NEGATIVE NEGATIVE [facility] Hospital[facility] urine sediment leukocyte count by microscopy (number/high power field)2020-04-25 16:20:00* Test Item Value Reference Range Interpretation Comments Urine WBC (test code = 5821-4) NONE 0-5 [facility] HospitalErythrocytes detection in urine sediment by light [id number] 16:20:00* Test Item Value Reference Range Interpretation Comments Urine RBC (test code = 96081-4) NONE 0-5 [facility] HospitalBacteria detection in urine sediment by light [id number] 16:20:00* Test Item Value Reference Range Interpretation Comments Urine Bacteria (test code = 98275-3) FEW NONE [facility] HospitalEpithelial cells detection in urine sediment by light [id number] 16:20:00* Test Item Value Reference Range Interpretation Comments Urine Epithelial Cells (test code = 88908-8) NONE NONE [facility] HospitalAmorphous sediment detection in urine sediment by light pdknzvollf4860-85-23 16:20:00* Test Item Value Reference Range Interpretation Comments Urine Amorphous Sediment (test code = 8246-1) MODERATE FEW [facility] leukocytes automated count (number/volume)2020-04-25 14:29:00* Test Item Value Reference Range Interpretation Comments White Blood Count (test code = 6690-2) 6.34 4.8-10.8 [facility] erythrocytes automated count (number/volume)2020-04-25 14:29:00* Test Item Value Reference Range Interpretation Comments Red Blood Count (test code = 789-8) 5.21 4.3-5.7 [facility] hemoglobin measurement (moles/volume)2020-04-25 14:29:00* Test Item Value Reference Range Interpretation Comments Hemoglobin (test code = 12431-4) 16.0 14.0-18.0 [facility] HospitalAutom[facility] blood hematocrit (volume fraction)2020-04-25 14:29:00* Test Item Value Reference Range Interpretation Comments Hematocrit (test code = 4544-3) 47.5 38.2-49.6 [facility] HospitalAutomated erythrocyte mean corpuscular [id number] 14:29:00* Test Item Value Reference Range Interpretation Comments Mean Corpuscular Volume (test code = 787-2) 91.2 81-99 [facility] HospitalAutom[facility] erythrocyte mean corpuscular hemoglobin (mass per erythrocyte)2020-04-25 14:29:00* Test Item Value Reference Range Interpretation Comments Mean Corpuscular Hemoglobin (test code = 785-6) 30.7 28-32 [facility] Hospital[facility] erythrocyte mean corpuscular hemoglobin concentration measurement (mass/volume)2020-04-25 14:29:00* Test Item Value Reference Range Interpretation Comments Mean Corpuscular Hemoglobin Concent (test code = 786-4) 33.7 31-35 [facility] HospitalRDW BfuZv-[id number] 14:29:00* Test Item Value Reference Range Interpretation Comments Red Cell Distribution Width (test code = 35704-2) 14.9 11.7 -14.4 [facility] HospitalAutom[facility] blood platelet count (count/volume)2020-04-25 14:29:00* Test Item Value Reference Range Interpretation Comments Platelet Count (test code = 777-3) 242 140-360 [facility] Hospital[facility] blood segmented neutrophil count as percentage of total dxxkirgiqe6414-86-97 14:29:00* Test Item Value Reference Range Interpretation Comments Neutrophils (%) (Auto) (test code = 41328-6) 71.9 38.7-80.0 [facility] HospitalAutom[facility] blood lymphocyte count as percentage ot total cqihrbmddj9572-99-15 14:29:00* Test Item Value Reference Range Interpretation Comments Lymphocytes (%) (Auto) (test code = 736-9) 14.7 18.0-39.1 [facility] HospitalAutom[facility] blood monocyte count as percentage of total flewhyqsaw0707-97-27 14:29:00* Test Item Value Reference Range Interpretation Comments Monocytes (%) (Auto) (test code = 5905-5) 11.0 4.4-11.3 [facility] HospitalAutom[facility] blood eosinophil count as percentage of total qhahnvovep7544-79-30 14:29:00* Test Item Value Reference Range Interpretation Comments Eosinophils (%) (Auto) (test code = 713-8) 0.9 0.0-6.0 [facility] HospitalAutomated blood basophil count as percentage of total znkmyncqeg7899-16-23 14:29:00* Test Item Value Reference Range Interpretation Comments Basophils (%) (Auto) (test code = 706-2) 0.6 0.0-1.0 [facility] HospitalFluoroscopic procedure less than one hour shzngtuk0917-94-63 14:29:00* Test Item Value Reference Range Interpretation Comments IM GRANULOCYTES % (test code = IM GRANULOCYTES %) 0.9 0.0- 1.0 [facility] HospitalAutomated blood neutrophil count 2020-04-25 14:29:00* Test Item Value Reference Range Interpretation Comments Neutrophils # (Auto) (test code = 751-8) 4.6 2.1-6.9 [facility]Blood lymphocytes count (number/volume) 2020-04-25 14:29:00* Test Item Value Reference Range Interpretation Comments Lymphocytes # (Auto) (test code = 79931-9) 0.9 1.0-3.2 [facility] HospitalBlood monocytes automated count (number/volume)2020-04-25 14:29:00* Test Item Value Reference Range Interpretation Comments Monocytes # (Auto) (test code = 742-7) 0.7 0.2-0.8 [facility] HospitalAutomated blood eosinophil count 2020-04-25 14:29:00* Test Item Value Reference Range Interpretation Comments Eosinophils # (Auto) (test code = 711-2) 0.1 0.0-0.4 [facility] HospitalAutomated blood basophil count (count/volume)2020-04-25 14:29:00* Test Item Value Reference Range Interpretation Comments Basophils # (Auto) (test code = 704-7) 0.0 0.0-0.1 [facility] HospitalFluoroscopic procedure less than one hour ewmytiop7560-84-30 14:29:00* Test Item Value Reference Range Interpretation Comments Absolute Immature Granulocyte (auto (selma t code = Absolute Immature Granulocyte (auto) 0.06 0-0.1 [facility] plasma sodium measurement (moles/volume)2020-04-25 14:29:00* Test Item Value Reference Range Interpretation Comments Sodium Level (test code = 2951-2) 138 136-145 [facility] plasma potassium measurement (moles/volume)2020-04-25 14:29:00* Test Item Value Reference Range Interpretation Comments Potassium Level (test code = 2823-3) 4.3 3.5-5.1 [facility] plasma chloride measurement (moles/volume)2020-04-25 14:29:00* Test Item Value Reference Range Interpretation Comments Chloride Level (test code = 2075-0) 101 98-107 [facility] or plasma carbon dioxide, total measurement (moles/volume)2020-04-25 14:29:00* Test Item Value Reference Range Interpretation Comments Carbon Dioxide Level (test code = 2028-9) 26 22-29 [facility] or plasma anion [id number] 14:29:00* Test Item Value Reference Range Interpretation Comments Anion Gap (test code = 16492-2) 15.3 8-16 [facility] urea nitrogen measurement (mass/volume)2020-04-25 14:29:00* Test Item Value Reference Range Interpretation Comments Blood Urea Nitrogen (test code = 3094-0) 15 7-26 [facility] creatinine measurement (mass/volume)2020-04-25 14:29:00* Test Item Value Reference Range Interpretation Comments Creatinine (test code = 2160-0) 1.17 0.72-1.25 [facility] urea nitrogen/creatinine mass atyhp5032-14-23 14:29:00* Test Item Value Reference Range Interpretation Comments BUN/Creatinine Ratio (test code = 3097-3) 13 6-25 [facility] HospitalEstimated glomerular filtration rate (GFR) uwtcjlbsduyel3043-76-51 14:29:00* Test Item Value Reference Range Interpretation Comments Estimat Glomerular Filtration Rate (test code = 927210088) 60 >60 Ranges were taken from the National Kidney Disease Education Program and the [facility] Foundation literature.Reference ranges:60 or greater: Ooobxi33-71 ( for 3 consecutive months): Chronic kidney disease 15 or less: Kidney failureLegent Orthopedic HospitalGlucose jlsvhgydoju7756-13-31 14:29:00* Test Item Value Reference Range Interpretation Comments Glucose Level (test code = XHC1083) 114 74-118 [facility] calcium measurement (mass/volume)2020-04-25 14:29:00* Test Item Value Reference Range Interpretation Comments Calcium Level (test code = 24488-4) 8.9 8.4-10.2 [facility] total bilirubin measurement (mass/volume)2020-04-25 14:29:00* Test Item Value Reference Range Interpretation Comments Total Bilirubin (test code = 1975-2) 1.1 0.2-1.2 [facility] HospitalFluoroscopic procedure less than one hour oxpmwncg8542-71-56 14:29:00* Test Item Value Reference Range Interpretation Comments Aspartate Amino Transf (AST/SGOT) (test code = Aspartate Amino Transf (AST/SGOT)) 207 5-34 [facility] alanine aminotransferase measurement (enzymatic activity/volume)2020-04-25 14:29:00* Test Item Value Reference Range Interpretation Comments Alanine Aminotransferase (ALT/SGPT) (test code = 1742-6) 187 0-55 [facility] protein measurement (mass/volume)2020-04-25 14:29:00* Test Item Value Reference Range Interpretation Comments Total Protein (test code = 2885-2) 7.7 6.5-8.1 [facility] albumin measurement (mass/volume)2020-04-25 14:29:00* Test Item Value Reference Range Interpretation Comments Albumin (test code = 1751-7) 3.5 3.5-5.0 [facility] HospitalPlasma globulin measurement (mass/volume) 2020-04-25 14:29:00* Test Item Value Reference Range Interpretation Comments Globulin (test code = 69283-4) 4.2 2.3-3.5 [facility] albumin/globulin mass zaplq3828-27-13 14:29:00* Test Item Value Reference Range Interpretation Comments Albumin/Globulin Ratio (test code = 1759-0) 0.8 0.8-2.0 [facility] alkaline phosphatase measurement (enzymatic activity/volume)2020-04-25 14:29:00* Test Item Value Reference Range Interpretation Comments Alkaline Phosphatase (test code = 6768-6) 165 40-150 [facility] HospitalProthrombin time (PT) in platelet poor plasma by coagulation uptvf9699-49-36 09:46:00* Test Item Value Reference Range Interpretation Comments Prothrombin Time (test code = 5902-2) 16.7 11.9-14.5 [facility] HospitalINR in Platelet poor plasma by Coagulation gdvpt9589-82-44 09:46:00* Test Item Value Reference Range Interpretation Comments Prothromb Time International Ratio (test code = 6301-6) 1.29 Oral Anticoagulant Therapy INR Values:1. Low Intensity Therapy 1.5 - 2.02 . Moderate Intensity Therapy 2.0 - 3.03. High Intensity Therapy(1) 2.5 - 3. 54. High Intensity Therapy(2) 3.0 - 4.05. Panic Value INR > 5.0 [facility] HospitalActivated partial thromboplastin time (aPTT) in platelet poor plasma by coagulation tzrjf1642-40-04 09:46:00* Test Item Value Reference Range Interpretation Comments Activated Partial Thromboplast Time (test code = 34293-6) 30.5 23.8-35.5 [facility] HospitalFluoroscopic procedure less than one hour qhntvend1745-66-89 12:26:00* Test Item Value Reference Range Interpretation Comments Coronavirus (PCR) (test code = Coronavirus (PCR)) NOT DETECTED NOTD ETECTED [employer] SARS-CoV-2 Assay is a real-time RT-PCR test intended for the qual itative detection of RNA from SARS-CoV-2 from nasopharyngeal (POCKET MACHINE OPERATOR) specimens. It is used under Emergency use Authorization (EUA) by FDA. A positive result is ind icative of the presence of SARS-CoV-2 RNA. Clinical correlation with patient his tory and other diagnostic information is necessary to determine patient infectio n status.A negative (Not Detected) result does not preclude SARS-CoV-2 infection . Clinical Correlation with patient history and other diagnostic information karely uld be used in patient management decisions.Invalid: Unable to generate a valid result on this specimen. Please submit a new specimen for reprat testing oc clin ically indicated.Tesing performed by:[facility] [address] [place] [address] [id number], Sonny Beck MD, PhDLegent Orthopedic HospitalCT ABDOMEN/PELVIS [id number] 16:00:00 [facility] [address] [address] Patient Name: SHANNON PALMER MR #: [id number] : 1940 Age/Sex: 79/M Req #: [id number] Adm Physician: Ordered by: Sai Ribera MD Report #: [id number] Location: ER Room/Bed: Procedure: CT/CT ABDOMEN/PELVIS W Exam Date: 04/03/20 Exam Time: 1456 REPORT STATUS: Signed CT of the abdomen and pelvis with contrast TECHNIQUE: CT of the abdomen and pelvis WITH intravenous contrast and WITHOUT oral contrast. Dose modulation, iterat farhan reconstruction, and/or weight-based adjustment of the mA/kV was utilized t o reduce the radiation dose to as low as reasonably achievable. IV CONTRA ST: 100 mL of Isovue-370 ORAL CONTRAST: None RADIATI ON DOSE: Total DLP: 307 mGy*cm COMPLICATIONS: None INDICATION : melena, abdominal discomfort [id number]. COMPARISON: 05/09/20 14. FINDINGS: LOWER THORAX: Unremarkable. HEPATOBILIARY: No delgado spicious solid hepatic lesions. There is minimal bilateral subcentimeter hypod ense lesions, too small to accurately characterize although statistically rela brooke cysts. Gallbladder is surgically absent. Moderate central and extrahepatic biliary dilatation is noted. SPLEEN: No splenomegaly. PANCREAS: No focal ma sses or ductal dilatation. ADRENALS: No adrenal nodules. KIDNEYS/URETERS: Asymmetric mild atrophy of the right kidney is noted. Symmetric cortical enha ncement is noted without hydronephrosis or suspicious mass. Nonobstructing 3 m m left inferior pole calculus is noted. Left inferior pole cortical cyst is no brooke. No surrounding fluid collection is noted. PELVIC ORGANS/BLADDER: Urinary bladder is mildly distended and unremarkable. Prostate is within normal limits for size. PERITONEUM/RETROPERITONEUM: No free air or fluid. Bilateral fat- containing inguinal hernias are noted. A portion of the terminal ileum does ap proach the neck and origin of the hernia but does not enter the deeper parts o f the hernia are no evidence of obstruction. LYMPH NODES: No lymphadenopathy . VESSELS: Negative for abdominal aortic aneurysm. GI TRACT: Small amount of oral contrast is noted within terminal ileum and cecum. Stomach is decompr essed limiting evaluation. No evidence of obstruction. No surrounding inflamma tory changes are identified. Moderate to severe colonic stool retention is not ed. Normal appendix is noted. BONES AND SOFT TISSUES: No acute osseous abno rmality. 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 Soft tissues ar e unremarkable. IMPRESSION: 1. Moderate to severe colonic stool retention , most prominent at the rectum concerning for constipation. No evidence of sma ll bowel obstruction. No surrounding inflammatory changes or wall thickening t o suggest colitis. Stomach is decompressed limiting evaluation. 2. Bilateral fat-containing inguinal hernias. Bowel loops are not identified within the he rnia sacs however within the right internal canal the terminal ileum does appr oach the origin. 3. Multiple subcentimeter hypodense lesions of the liver are indeterminant and too small to characterize. Statistically these relate to cys ts. 4. Post surgical changes from cholecystectomy with central and extra hepat ic biliary dilatation, likely normal for patient's age and postsurgical state. 5. Nonobstructing left 3 mm inferior pole renal calculus. Mild asymmetric a trophy of the right kidney is noted. Signed by: Tera Smith MD on 04/03/2020 4:08 PM Dictated By: TERA SMITH MD 1608 Transcribed By: NIALL on 04/03/20 1608 COPY TO: SAI RIBERA MD Urine color bormounkpcoqx6851-63-21 13:25:00 * Test Item Value Reference Range Interpretation Comments Urine Color (test code = 5778-6) YELLOW YELLOW [facility] HospitalUrine iyjdnlq1388-57-63 13:25:00* Test Item Value Reference Range Interpretation Comments Urine Clarity (test code = 00806-4) SL CLOUDY CLEAR [facility]pecific gravity of Urine by Test strip 2020-04-03 13:25:00* Test Item Value Reference Range Interpretation Comments Urine Specific [place] (test code = 5811-5) 1.030 1.010-1.02 5 [facility] HospitalUrine pH measurement by automated test qmgbj4884-13-21 13:25:00* Test Item Value Reference Range Interpretation Comments Urine pH (test code = 69280-0) 5.5 5-7 [facility] HospitalUrine leukocyte esterase detection by dgekzrdd0188-55-91 13:25:00* Test Item Value Reference Range Interpretation Comments Urine Leukocyte Esterase (test code = 5799-2) NEGATIVE NEGATIVE [facility] HospitalUrine nitrite rmopazzou5624-72-54 13:25:00* Test Item Value Reference Range Interpretation Comments Urine Nitrite (test code = 52106-9) NEGATIVE NEGATIVE [facility] HospitalUrine protein measurement by test strip (mass/volume)2020-04-03 13:25:00* Test Item Value Reference Range Interpretation Comments Urine Protein (test code = 5804-0) TRACE NEGATIVE [facility] HospitalUrine glucose tclopagac3621-29-98 13:25:00* Test Item Value Reference Range Interpretation Comments Urine Glucose (UA) (test code = 2349-9) NEGATIVE NEGATIVE [facility] HospitalUrine ketones detection by automated test kuhzj8507-07-60 13:25:00* Test Item Value Reference Range Interpretation Comments Urine Ketones (test code = 13129-3) TRACE NEGATIVE [facility] HospitalUrine urobilinogen measurement by test strip (mass/volume)2020-04-03 13:25:00* Test Item Value Reference Range Interpretation Comments Urine Urobilinogen (test code = 65756-4) 2.0 0.2-1 [facility] HospitalUrine total bilirubin measurement (mass/volume)2020-04-03 13:25:00* Test Item Value Reference Range Interpretation Comments Urine Bilirubin (test code = 1978-6) NEGATIVE NEGATIVE [facility] HospitalUrine erythrocytes trqobsktk6819-88-30 13:25:00* Test Item Value Reference Range Interpretation Comments Urine Blood (test code = 76167-1) NEGATIVE NEGATIVE [facility] HospitalAutomated urine sediment leukocyte count by microscopy (number/high power field)2020-04-03 13:25:00* Test Item Value Reference Range Interpretation Comments Urine WBC (test code = 5821-4) 0-5 0-5 [facility] HospitalErythrocytes detection in urine sediment by light tiwphbnplz8617-39-40 13:25:00* Test Item Value Reference Range Interpretation Comments Urine RBC (test code = 42162-5) 0-5 0-5 [facility] HospitalBacteria detection in urine sediment by light agwusnebyf7449-50-76 13:25:00* Test Item Value Reference Range Interpretation Comments Urine Bacteria (test code = 41782-6) FEW NONE [facility] HospitalEpithelial cells detection in urine sediment by light bpjyzhbmei8839-78-03 13:25:00* Test Item Value Reference Range Interpretation Comments Urine Epithelial Cells (test code = 85312-0) RARE NONE [facility] HospitalCalcium oxalate crystals detection in urine sediment by light ntponivlku0333-30-75 13:25:00* Test Item Value Reference Range Interpretation Comments Urine Calcium Oxalate Crystals (test code = 5774-5) FEW FE W [facility] HospitalHyaline casts detection in urine sediment by light mrhpnrhyaj7547-81-22 13:25:00* Test Item Value Reference Range Interpretation Comments Urine Hyaline Casts (test code = 41286-9) 2-5 0-1 [facility] HospitalCalcium oxalate crystals detection in urine sediment by light kpdhgygwbo0964-30-37 13:25:00* Test Item Value Reference Range Interpretation Comments Urine Calcium Oxalate Crystals (test code = 5774-5) FEW FE W [facility] HospitalHyaline casts detection in urine sediment by light qndfwiisih2075-03-71 13:25:00* Test Item Value Reference Range Interpretation Comments Urine Hyaline Casts (test code = 81883-9) 2-5 0-1 [facility] HospitalBlood leukocytes automated count (number/volume)2020-04-03 13:08:00* Test Item Value Reference Range Interpretation Comments White Blood Count (test code = 6690-2) 6.70 4.8-10.8 [facility] HospitalBlood erythrocytes automated count (number/volume)2020-04-03 13:08:00* Test Item Value Reference Range Interpretation Comments Red Blood Count (test code = 789-8) 4.77 4.3-5.7 [facility] HospitalBlood hemoglobin measurement (moles/volume)2020-04-03 13:08:00* Test Item Value Reference Range Interpretation Comments Hemoglobin (test code = 55407-6) 14.5 14.0-18.0 [facility] HospitalAutomated blood hematocrit (volume fraction)2020-04-03 13:08:00* Test Item Value Reference Range Interpretation Comments Hematocrit (test code = 4544-3) 43.2 38.2-49.6 [facility] HospitalAutomated erythrocyte mean corpuscular wvnbqt7837-54-76 13:08:00* Test Item Value Reference Range Interpretation Comments Mean Corpuscular Volume (test code = 787-2) 90.6 81-99 [facility] HospitalAutomated erythrocyte mean corpuscular hemoglobin (mass per erythrocyte)2020-04-03 13:08:00* Test Item Value Reference Range Interpretation Comments Mean Corpuscular Hemoglobin (test code = 785-6) 30.4 28-32 [facility] HospitalAutomated erythrocyte mean corpuscular hemoglobin concentration measurement (mass/volume)2020-04-03 13:08:00* Test Item Value Reference Range Interpretation Comments Mean Corpuscular Hemoglobin Concent (test code = 786-4) 33.6 31-35 [facility] HospitalRDW QosRv-Uqg4154-73-02 13:08:00* Test Item Value Reference Range Interpretation Comments Red Cell Distribution Width (test code = 63907-8) 14.9 11.7 -14.4 [facility] HospitalAutomated blood platelet count (count/volume)2020-04-03 13:08:00* Test Item Value Reference Range Interpretation Comments Platelet Count (test code = 777-3) 204 140-360 [facility] HospitalAutomated blood segmented neutrophil count as percentage of total bvgitltmek1313-08-20 13:08:00* Test Item Value Reference Range Interpretation Comments Neutrophils (%) (Auto) (test code = 66694-7) 74.6 38.7-80.0 [facility] blood lymphocyte count as percentage ot total tpfmepbdbz0103-42-12 13:08:00* Test Item Value Reference Range Interpretation Comments Lymphocytes (%) (Auto) (test code = 736-9) 13.6 18.0-39.1 [facility] HospitalAutomated blood monocyte count as percentage of total tfgosvhgyi3135-58-09 13:08:00* Test Item Value Reference Range Interpretation Comments Monocytes (%) (Auto) (test code = 5905-5) 9.9 4.4-11.3 [facility] HospitalAutatrium health blood eosinophil count as percentage of total nuqxxlgpee7395-85-44 13:08:00* Test Item Value Reference Range Interpretation Comments Eosinophils (%) (Auto) (test code = 713-8) 0.9 0.0-6.0 [facility] HospitalAutomated blood basophil count as percentage of total xmckqjbcaz6797-11-07 13:08:00* Test Item Value Reference Range Interpretation Comments Basophils (%) (Auto) (test code = 706-2) 0.4 0.0-1.0 [facility] HospitalFluoroscopic procedure less than one hour pkocuwmy9448-86-64 13:08:00* Test Item Value Reference Range Interpretation Comments IM GRANULOCYTES % (test code = IM GRANULOCYTES %) 0.6 0.0- 1.0 [facility] HospitalAutomated blood neutrophil count 2020-04-03 13:08:00* Test Item Value Reference Range Interpretation Comments Neutrophils # (Auto) (test code = 751-8) 5.0 2.1-6.9 [facility] HospitalBlood lymphocytes count (number/volume) 2020-04-03 13:08:00* Test Item Value Reference Range Interpretation Comments Lymphocytes # (Auto) (test code = 32788-8) 0.9 1.0-3.2 [facility] HospitalBlood monocytes automated count (number/volume)2020-04-03 13:08:00* Test Item Value Reference Range Interpretation Comments Monocytes # (Auto) (test code = 742-7) 0.7 0.2-0.8 [facility] HospitalAutomated blood eosinophil count 2020-04-03 13:08:00* Test Item Value Reference Range Interpretation Comments Eosinophils # (Auto) (test code = 711-2) 0.1 0.0-0.4 [facility] HospitalAutomated blood basophil count (count/volume)2020-04-03 13:08:00* Test Item Value Reference Range Interpretation Comments Basophils # (Auto) (test code = 704-7) 0.0 0.0-0.1 [facility] HospitalFluoroscopic procedure less than one hour shoeyahp5739-67-30 13:08:00* Test Item Value Reference Range Interpretation Comments Absolute Immature Granulocyte (auto (selma t code = Absolute Immature Granulocyte (auto) 0.04 0-0.1 [facility] HospitalProthrombin time (PT) in platelet poor plasma by coagulation ymyjf4613-58-20 13:08:00* Test Item Value Reference Range Interpretation Comments Prothrombin Time (test code = 5902-2) 27.6 11.9-14.5 [facility] HospitalINR in Platelet poor plasma by Coagulation gwpxx0339-83-48 13:08:00* Test Item Value Reference Range Interpretation Comments Prothromb Time International Ratio (test code = 6301-6) 2.38 Oral Anticoagulant Therapy INR Values:1. Low Intensity Therapy 1.5 - 2.02 . Moderate Intensity Therapy 2.0 - 3.03. High Intensity Therapy(1) 2.5 - 3. 54. High Intensity Therapy(2) 3.0 - 4.05. Panic Value INR > 5.0 [facility] plasma sodium measurement (moles/volume)2020-04-03 13:08:00* Test Item Value Reference Range Interpretation Comments Sodium Level (test code = 2951-2) 140 136-145 [facility] plasma potassium measurement (moles/volume)2020-04-03 13:08:00* Test Item Value Reference Range Interpretation Comments Potassium Level (test code = 2823-3) 4.6 3.5-5.1 [facility] or plasma chloride measurement (moles/volume)2020-04-03 13:08:00* Test Item Value Reference Range Interpretation Comments Chloride Level (test code = 2075-0) 104 98-107 [facility] or plasma carbon dioxide, total measurement (moles/volume)2020-04-03 13:08:00* Test Item Value Reference Range Interpretation Comments Carbon Dioxide Level (test code = 2028-9) 25 22-29 [facility] Atlanta[facility] or plasma anion afk4550-54-99 13:08:00* Test Item Value Reference Range Interpretation Comments Anion Gap (test code = 74738-3) 15.6 8-16 [facility] plasma urea nitrogen measurement (mass/volume)2020-04-03 13:08:00* Test Item Value Reference Range Interpretation Comments Blood Urea Nitrogen (test code = 3094-0) 20 7-26 [facility] plasma creatinine measurement (mass/volume)2020-04-03 13:08:00* Test Item Value Reference Range Interpretation Comments Creatinine (test code = 2160-0) 1.58 0.72-1.25 [facility] plasma urea nitrogen/creatinine mass yyyec6955-42-53 13:08:00* Test Item Value Reference Range Interpretation Comments BUN/Creatinine Ratio (test code = 3097-3) 13 6-25 [facility] HospitalEstimated glomerular filtration rate (GFR) xxlqawmcsgybr2385-03-05 13:08:00* Test Item Value Reference Range Interpretation Comments Estimat Glomerular Filtration Rate (test code = 324476059) 43 >60 Ranges were taken from the National Kidney Disease Education Program and the [facility] Kid[facility] Foundation literature.Reference ranges:60 or greater: Rvdxqr34-46 ( for 3 consecutive months): Chronic kidney disease 15 or less: Kidney failureLegent Orthopedic HospitalGlucose rdgaarfpkvx0331-87-97 13:08:00* Test Item Value Reference Range Interpretation Comments Glucose Level (test code = LMD5339) 120 74-118 [facility] plasma calcium measurement (mass/volume)2020-04-03 13:08:00* Test Item Value Reference Range Interpretation Comments Calcium Level (test code = 29014-7) 8.6 8.4-10.2 [facility] plasma total bilirubin measurement (mass/volume)2020-04-03 13:08:00* Test Item Value Reference Range Interpretation Comments Total Bilirubin (test code = 1975-2) 1.3 0.2-1.2 [facility] HospitalFluoroscopic procedure less than one hour akqzmvhs8225-01-81 13:08:00* Test Item Value Reference Range Interpretation Comments Aspartate Amino Transf (AST/SGOT) (test code = Aspartate Amino Transf (AST/SGOT)) 157 5-34 [facility] or plasma alanine aminotransferase measurement (enzymatic activity/volume)2020-04-03 13:08:00* Test Item Value Reference Range Interpretation Comments Alanine Aminotransferase (ALT/SGPT) (test code = 1742-6) 309 0-55 [facility] plasma protein measurement (mass/volume)2020-04-03 13:08:00* Test Item Value Reference Range Interpretation Comments Total Protein (test code = 2885-2) 6.8 6.5-8.1 [facility] plasma albumin measurement (mass/volume)2020-04-03 13:08:00* Test Item Value Reference Range Interpretation Comments Albumin (test code = 1751-7) 3.5 3.5-5.0 [facility] HospitalPlasma globulin measurement (mass/volume) 2020-04-03 13:08:00* Test Item Value Reference Range Interpretation Comments Globulin (test code = 87890-9) 3.3 2.3-3.5 [facility] plasma albumin/globulin mass tkllz1838-73-27 13:08:00* Test Item Value Reference Range Interpretation Comments Albumin/Globulin Ratio (test code = 1759-0) 1.1 0.8-2.0 [facility] plasma alkaline phosphatase measurement (enzymatic activity/volume)2020-04-03 13:08:00* Test Item Value Reference Range Interpretation Comments Alkaline Phosphatase (test code = 6768-6) 151 40-150 [facility] or plasma lipase measurement (enzymatic activity/volume)2020-04-03 13:08:00* Test Item Value Reference Range Interpretation Comments Lipase (test code = 3040-3) 31 [facility] plasma lipase measurement (enzymatic activity/volume)2020-04-03 13:08:00* Test Item Value Reference Range Interpretation Comments Lipase (test code = 3040-3) 31 [facility] HospitalHEMATOLOGY2017-07-31 22:24:00* Test Item Value Reference Range Interpretation Comments PT (test code = PT) 21.7 s 12.0-14.7 [facility]ZhvyqbxFFPSULYVWC5470-91-78 22:24:001.85[facility]CHE[facility] PANEL 2017-02-[facility] 21:07:0065[facility] HermannCHEM KHVJA8998-75-35 21:07:92464Qenkxhoc HermannCHEM ANTQV5369-83-30 21:07:004.0[facility]annCHEM FGGLW7366-74-48 21:07:81968Ikhajcwc HermannCHEM KPIXG0266-87-15 21:07:001.10[facility]annCHEM MQOYD9791-87-31 21:07:36094Exhnqnxl HermannCHEM MRYKH6225-69-45 21:07:0012 [facility]annCHEM ZWICT0745-44-32 21:07:008.8[facility]annCHEM PANEL 2017-02-26 21:07:0033[facility] HermannCHEM WIDKF8402-76-21 21:07:008.0[facility] EkiaxthYUZYVSTCCH7205-79-18 21:07:00* Test Item Value Reference Range Interpretation Comments PTT (test code = PTT) 33.8 s 22.9-35.8 [facility] VahvwaiTWQBZVYUGX7674-29-20 21:07[facility].22[facility] 2017-[facility] 21:07:00* Test Item Value Reference Range Interpretation Comments PT (test code = PT) 25.0 s 12.0-14.7 [facility] [id number] 21:07:0013.6[facility] 2017-02-26 21:07:00* Test Item Value Reference Range Interpretation Comments MCH (test code = MCH) 30.8 pg 27.0-31.0 [facility] QwddlamCAFIEXAIFG3101-97-39 21:07:0034.5[facility] 2017-02-26 21:07:007.6[facility] DmslrmoZQYOUENELZ6328-54-50 21:07:35502Fcuptrqa CxsawrzQZDQWFFAAL0518-01-20 21:07:0015.0[facility] KbvpmdxKHGBBPNICD6965-97-39 21:07:004.87[facility] QqdmdueLSKYZPDXYN7658-85-47 21:07:0043.5[facility] Alin NXOYZGNUNQ1549-24-09 21:07:0089.4[facility] SaikurqIQVUBKQYJZ2129-93-73 21:07:00 5.2[facility] TqbohzmCUVCQYBGBO5604-74-52 21:07:000.3[facility] 2017-02-26 21:07:000.5[facility] BcjsgyeKDQNFETWJR6160-20-95 21:07:000.9[facility] CsxazkdGAKKIYEJNE2613-82-02 21:07:000.8[facility] FjhifqbZMISKJILCK0970-12-56 21:07:003.4[facility] QvorhcxMWDTIXDNID3671-16-57 21:07:0066.8[facility] Pease ABPGPZLJGS2691-50-26 21:07:009.0[facility] PbtkbrvFCTEWDYWAX5655-17-12 21:07:005.6 [facility] QnsyggqBNTDNHCHFH1034-45-67 21:07:0017.8[facility]
--- OUTSIDE RECORDS SUMMARY | 2020-06-15 16:02 | XMS REPORT | Continuity of Care Document ---
Author Author Nancy EyestormSHANNON Organization [employer] Address Unknown Phone Unavailable Care Team Providers Care Electronic Transaction Implementer Name Role Phone [employer] Unavailable Un available Problems Problem Status Onset Date Classification Date Reported Comments Source UNK Active 0 02/16/2017 [facility] Chronic systolic heart failure (disorder) Active Problem 03/05/2017 [facility] Hyperlipidemia (disorder) Acti ve Problem 10/2016 [facility] Hypertensive disorder, systemic arterial (disorder) Active Problem 03/05/2017 [facility] History of - myocardial infarction (cont ext-dependent category) Active Prob [place] 03/05/2017 [facility] Medications Medication Details Route Status Patient Instructions Ordering Provider Order Date Source atorvastatin Notes: (Same as: Lipitor) Inactive 03/02/2017 [facility] Losartan Notes: (Same as: Coza ar) Inactive 03/02/2017 [facility] tamsulosin Notes: (Same As: Fl omax) "Do Not Crush" No Longer Active 03/02/2017 [facility] pantoprazole Notes: Tablet karely uld not be chewed or crushed. (Same as: Protonix) N o Longer Active 03/02/2017 [facility] carvedilol Notes: Give with fo od. (Same As: Coreg) No Longer Active 03/02/2017 [facility] acetaminophen-codeine #3 Notes : Do not exceed 4gm/day of acetaminophen. (Same as: Tylenol with Codeine # 3) No Longer Active 03/01/2017 [facility] Vancomycin 2001 mg: infuse ov er 2.5 hours MEDICATION WASTE Product Size: 1000 mg Product Wasted: ___ mg No Longer Active 03/01/2017 [facility] Ondansetron Notes: (Same as: Lissy fuller) MEDICATION WASTE Product Size: 4 mg Product Wasted: ___ mg No Longer Active 03/01/2017 [facility] Acetaminophen Notes: Do not ex ceed 4 gm/day. (Same as: Tylenol) No Longer Active 03/01/2017 [facility] Epinephrine 0.005 MG/ML / Lidocaine Hydr ochloride 10 MG/ML Injection Notes: (lidocaine-epi 1%-1:82058 30 ml A MP (PF)) Preservative-free (Same as: Xylocaine-MPF w/Epinephrine) Inactive 03/01/2017 [facility] warfarin 1 mg oral tablet 1 mg = 1 tab, PO, Daily, # 30 tab, 0 Refill(s) Active 02/26/2017 [facility] pantoprazole 40 mg oral enteric coated tablet 40 mg = 1 tab, PO, Daily, # 30 tab, 0 Refill(s) Active 02/26/2017 [facility] tamsulosin 0.4 mg oral capsule 0.4 mg = 1 cap, PO, Daily, # 30 cap, 0 Refill(s) Active 02/26/2017 [facility] losartan 25 mg oral tablet 25 mg = 1 tab, PO, Daily, # 30 tab, 1 Refill(s) Active 02/26/2017 [facility] carvedilol 12.5 mg oral tablet 12.5 mg = 1 tab, PO, BID, # 180 tab, 0 Refill(s) Active 02/26/2017 [facility] atorvastatin 80 mg oral tablet 80 mg = 1 tab, PO, Bedtime, # 30 tab, 0 Refill(s) Active 02/26/2017 [facility] Allergies, Adverse Reactions, Alerts No Known Medication Allergies Immunizations Immunization Date Given Site Status Last Updated Comments Source pneumococcal 23-valent vaccine 06/02/2015 completed Grecia blanc [facility] Results Order Name Results Value Reference Range Date Interpretation Comments Source HEMATOLOGY PT 21.7 12.0 - 14.7 03/01/2017 [facility] HEMATOLOGY INR 1.85 0.85 - 1.17 03/01/2017 [facility] CHEM PANEL eGFR 65 02/26/2017 Result [...] should be multiplied by the estimated BMI. [facility] CHEM PANEL Chloride Lvl 106 95 - 109 02/26/2017 [facility] CHEM PANEL Potassium Lvl 4.0 3.5 - 5.1 02/26/2017 [facility] CHEM PANEL Sodium Lvl 143 135 - 145 02/26/2017 [facility] CHEM PANEL Creatinine Lvl 1.10 0.50 - 1.40 02/26/2017 [facility] CHEM PANEL Glucose Lvl 108 70 - 99 02/26/2017 [facility] CHEM PANEL BUN 12 7 - 22 02/26/2017 [facility] CHEM PANEL Calcium Lvl 8.8 8.5 - 10.5 02/26/2017 [facility] CHEM PANEL CO2 33 24 - 32 02/26/2017 [facility] CHEM PANEL AGAP 8.0 10.0 - 20.0 02/26/2017 [facility] HEMATOLOGY PTT 33.8 22.9 - 35.8 [...] Monocytes # 0.5 0.0 - 0.8 02/26/2017 [facility] HEMATOLOGY Lymphocytes # 0.9 1.0 - 5.5 02/26/2017 [facility] HEMATOLOGY Basophils 0.8 0.0 - 1.0 02/26/2017 [facility] HEMATOLOGY Segs-Bands # 3.4 1.5 - 8.1 02/26/2017 [facility] HEMATOLOGY Segs 66.8 45.0 - 75.0 02/26/2017 [facility] HEMATOLOGY Monocytes 9.0 2.0 - 12.0 02/26/2017 [facility] HEMATOLOGY Eosinophils 5.6 0.0 - 4.0 02/26/2017 [facility] HEMATOLOGY Lymphocytes 17.8 20.0 - 40.0 02/26/2017 [facility] Pathology Reports No Data Provided for This Section Diagnostic Reports Report Value Date Source Chest 2 views DX Patient Name: SHANNON PALMER : 1940; Age: 76 years y/o Male MR: [id number] Study: Chest 2 views DX 03/02/2017 3:00 [...] IMPRESSION: No new or acute finding. SL: [id number] 03/02/2017 [facility] Chest 1 v for Placement DX [...] post intracardiac device placement. SL: [id number] 03/01/2017 [facility] Consultation Notes No Data Provided for This Section Discharge Summaries No Data Provided for This Section History and Physicals No Data Provided for This Section Vital Signs Vital Sign Value Date Comments Source Systolic (mm Hg) 128 03/02/2017 [facility] Diastolic (mm Hg) 78 03/02/2017 [facility] Respitory Rate 18 03/02/2017 [facility] Heart Rate 68 03/02/2017 [facility] Temperature Oral (F) 98.1 F 03/02/2017 [facility] Heart Rate 61 03/02/2017 [facility] Temperature Oral (F) 98.3 F 03/02/2017 [facility] Respitory Rate 18 03/02/2017 [facility] Systolic (mm Hg) 129 03/02/2017 [facility] Diastolic (mm Hg) 75 03/02/2017 [facility] Heart Rate 63 03/02/2017 [facility] Temperature Oral (F) 97.8 F 03/02/2017 [facility] Systolic (mm Hg) 101 03/02/2017 [facility] Diastolic (mm Hg) 63 03/02/2017 [facility] Respitory Rate 18 03/02/2017 [facility] BMI Calculated 26.61 02/26/2017 [facility] Weight 77.074 02/26/2017 [facility] Height 170.18 cm 02/26/2017 [facility] Encounters Location Location Details Encounter Type Encounter Number Reason For Visit Attending Provider ADM Date DC Date Status Source [facility] Bedded Outpatient [id number] Coco Fabricio 03/01/2017 03/02/2017 [facility] Procedures Procedure Code Date Perfomer Comments Source Cholecystectomy [id number] [facility] Colonoscopy [id number] [facility] ICD - Internal cardiac defibrillator procedure [id number] [facility] Assessment and Plan No Data Provided for This Section Plan of Care No Data Provided for This Section Social History Social History Date Source Social History TypeResponse Substance Abuse Use: None. Alcohol Never, Previous treatment: None. Smoking Status Former smoker; Type: Cigarettes; Exposure to Tobacco Smoke None; Cigarette Smoking Last 365 Days No; Reg Smoking Cessation Counseling No 02/26/2017 [facility] Family History No Data Provided for This Section Advance Directives No Data Provided for This Section Functional Status No Data Provided for This Section
--- OUTSIDE RECORDS SUMMARY | 2020-06-15 16:02 | XMS REPORT | Clinical Summary ---
Author Author [facility] Organization [facility] [employer] Address Unknown Phone Unavailable Care Team Providers Care Records Analyst Name Role Phone Sheldon Tan MD PCP Allergies No Known Active Allergies Medications End Date Status Medication Sig [...] tablet by mouth daily. Active vitamin A 56268 UNIT Take 10,000 0 capsule Units by mouth daily. Active cholecalciferol, vitamin Take 1,000 0 D3, (VITAMIN D3) 1,000 Units by unit tablet mouth daily. Active Problems No known active problems Medical History Medical History Date Comments Hypercholesterolemia Heart attack (HCC) Clot BPH (benign prostatic hyperplasia) Insomnia GERD (gastroesophageal reflux disease) Social History Date Tobacco Use Types Packs/Day Years Used Never Smoker Smokeless Tobacco: Never Used Drinks/Week oz/Week Comments Alcohol Use occasional Yes Sex Assigned at Date Recorded Not on file Last Filed Vital Signs Not on file Plan of Treatment Health Maintenance Due Date Last Done Comments SHINGLES VACCINES (#1) 1991 65+ PNEUMOCOCCAL VACCINE 2006 (1 of 1 - PPSV23) INFLUENZA VACCINE 03/02/2020 Results Not on fileafter 06/15/2019 Insurance Type Payer Benefit Subscriber ID Effective Phone Address Plan / Dates Group HMO [employer] TEX[employer]US [id number] [id number] JESSENIA tran Advance Directives For more information, please contact: [phone] 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
--- NOTE | 2020-06-15 16:58 | Diagnostic Imaging Report ---
X-ray 3 views of the finger HISTORY: Pain. COMPARISON: None available. FINDINGS: Bones: No acute displaced fracture. Osseous alignment is within normal limits. Joints: The joint spaces are well-maintained. Soft tissues: The soft tissues appear unremarkable. IMPRESSION: No acute radiographic abnormality. Signed by: Marilyn Marshall MD on 06/15/2020 4:54 PM
[2020-06-15] MEDS ORDERED: ACETAMINOPHEN 325 MG TAB PO ONE (17:30)
[2020-06-15] MEDS ORDERED: LIDOCAINE HCL 1% LOCAL INJ 20 ML VIAL ONE (18:10)
--- NOTE | 2020-06-15 18:20 | Emergency Department Note ---
History of Present Illnes History of Present Illness Chief Complaint: Laceration History of Present Illness This is a 79 year old male presents to the ED for L thumb laceration s econdary to a table saw accident . Injury prior to arrival . Historian: Patient Arrival Mode: Car Onset (how long ago): minute(s) Radiation: Reports extremity Severity: moderate Onset quality: sudden Duration (how long): hour(s) Timing of current episode: constant Progression: worsening Chronicity: new Context: Reports trauma/injury Relieving factors: immobilization, rest Exacerbating factors: movement Associated symptoms: Reports denies other symptoms Treatments prior to arrival: none Past Medical/Family History Physician Review I have reviewed the patient's past medical and family history. Any updates have been documented here. Past Medical History Recent Fever: No Clinical Suspicion of Infectio: No New/Unexplained Change in Ment: No Past Medical History: Hypertension, UTI's Other Medical History: PROSTATE PROBLEMS, Past Surgical History: Pacer/AICD Other Surgery: DEFIBRILLATOR PLACEMENT Other Last Tetanus: UNK Any Pre-Existing Lines (PICC,: Yes Physical Exam Related Data Allergies: Coded Allergies: No Known Drug Allergies (Verified Allergy, Mild, 03/26/19) Triage Vital Signs Vital Signs Date Time Temp Pulse Resp B/P (MAP) Pulse Ox O2 Delivery O2 Flow Rate FiO2 06/15/20 16:07 98.1 59 18 141/75 100 Room Air Physical Exam CONSTITUTIONAL Constitutional: Present well-developed, Present well-nourished HENT HENT: Present normocephalic, Present atraumatic, Present oropharynx clear/moist, Present nose normal HENT L/R: Present left ext ear normal, Present right ext ear normal EYES Eyes: Reports PERRL, Reports conjunctivae normal NECK Neck: Present ROM normal PULMONARY Pulmonary: Present effort normal, Present breath sounds normal CARDIOVASCULAR Cardiovascular: Present regular rhythm, Present heart sounds normal, Present capillary refill normal, Present normal rate GASTROINTESTINAL Abdominal: Present soft, Present nontender, Present bowel sounds normal GENITOURINARY Genitourinary: Present exam deferred SKIN Skin: Present warm, Present dry, Present other MUSCULOSKELETAL Musculoskeletal: Present ROM normal NEUROLOGICAL Neurological: Present alert, Present oriented x 3, Present no gross motor or sensory deficits PSYCHOLOGICAL Psychological: Present mood/affect normal, Present judgement normal Results Imaging Imaging results reviewed: Yes Impressions [facility] [address] [address] Patient Name: SHANNON PALMER MR #: [id number] : 1940 Age/Sex: 79/M Req #: [id number] Adm Physician: Ordered by: KAMILA HORNE MD Report #: [id number] Location: ER Room/Bed: Procedure: [id number] DX/FINGER LEFT Exam Date: 06/15/20 Exam Time: 1615 REPORT STATUS: Signed X-ray 3 views of the finger HISTORY: Pain. COMPARISON: None available. FINDINGS: Bones: No acute displaced fracture. Osseous alignment is within normal limits. Joints: The joint spaces are well-maintained. Soft tissues: The soft tissues appear unremarkable. IMPRESSION: No acute radiographic abnormality. Signed by: Leon Bobby MD on 06/15/2020 4:54 PM Dictated By: LEON BOBBY MD 53 Transcribed By: NIALL on 06/15/201653 COPY TO: KAMILA HORNE MD~ Procedures Laceration Laceration: Laceration 1 Site: hand Side: left Size (cm): 4 Description: stellate Depth: simple, single layer Local anesthesia: lidocaine 1% Amount of anesthesia (mL): 3 Pre-repair: wound exposed, deep structures intact, wound margins revised Skin layer closed with: nylon Size (cm): 4-0 Number of sutures: 7 Technique: simple, interrupted Assessment & Plan Medical Decision Making MDM diff dx : laceration, open fx, tendon injury, joint arthrotomy Assessment & Plan Final Impression: (1) Laceration of thumb, left Depart Disposition: HOME, SELF-CARE Last Vital Signs Date Time Temp Pulse Resp B/P (MAP) Pulse Ox O2 Delivery O2 Flow Rate FiO2 06/15/20 16:07 98.1 59 18 141/75 100 Room Air Home Meds Active Scripts Ondansetron (ONDANSETRON ODT) 8 Mg Tab.rapdis, 4 MG PO Q4HR PRN for NAUSEA AND VOMITING, #20 TAB Prov:DREA MCKEON 04/25/20 Prednisone (PREDNISONE) 20 Mg Tab, 60 MG PO DAILY, #15 TAB TAKE ALL 3 20 MG PILLS AT ONCE Prov:JAY MCKEONTal COLE 04/25/20 Metronidazole (FLAGYL) 500 Mg Tablet, 500 MG PO Q8H, #30 TAKE WITH JUICE AND FOOD Prov:JAY MCKEONTal COLE 04/25/20 Amoxicillin/Potassium Clav (AUGMENTIN 875-125 TABLET) 1 Each Tablet, 875 MG PO Q12H, #20 TAB Prov:DREA MCKEON 04/25/20 Reported Medications Warfarin Sodium (WARFARIN SODIUM) 1 Mg Tablet, 1 MG PO DAILY, #30 TAB 04/05/20 Pantoprazole Sodium (PROTONIX) 20 Mg Tablet.dr, 40 MG PO DAILY, #30 TAB 04/05/20 Cholecalciferol (Vitamin D3) (Vitamin D3) 10 Mcg Capsule, PEG DAILY 04/05/20 Vitamin A (VITAMIN A) 8,000 Unit Capsule, PO DAILY 04/05/20 Amiodarone Hcl (AMIODARONE HCL) 200 Mg Tablet, 200 MG PO DAILY 04/05/20 Losartan Potassium (LOSARTAN POTASSIUM) 25 Mg Tablet, 25 MG PO DAILY 04/05/20 Carvedilol (COREG) 12.5 Mg Tab, 12.5 MG PO BID 12/04/15 Tamsulosin Hcl (TAMSULOSIN HCL) 0.4 Mg Cap.er.24h, 0.4 MG PO DAILY 12/02/15 Folic Acid (FOLIC ACID) 1 Mg Tablet, 800 MCG PO DAILY, #30 TAB 12/02/15 Ascorbic Acid (Vitamin C) 1,000 Mg Tablet.sa, 1000 MG PO DAILY 11/25/10 Medications in the ED Acetaminophen 975 mg ONCE ONCE PO ; Start 06/15/20 at 17:30; Stop 06/15/20 at 17:31; Status DC Lidocaine HCl 20 ml STK-MED ONCE .ROUTE ; Start 06/15/20 at 18:10; Stop 11/14/20 at 18:03; Status DC OLIVERA,JOE DO Jun 15, 2020 18:20
[2020-06-15 18:30] VITALS: BP 118/75
== END 2020-06-15 18:32 | disposition home or self-care (01) ==
LOC: ER 15:59
DX: S61.012A Laceration without foreign body of left thumb without damage to nail, initial encounter (principal); W31.2XXA Contact with powered woodworking and forming machines, initial encounter; Y92.008 Other place in unspecified non-institutional (private) residence as the place of occurrence of the external cause
CPT/HCPCS: 12002; 73140; 99284; J2001

== ENCOUNTER 2020-08-31 12:53 | Emergency (ER) | payer OTHER ==
[~2020-08-31] VITALS: Ht 170.2 cm; Wt 79.4 kg
[2020-08-31 14:06] LABS: BASOPHILS % 0.7 % (0.0-1.0); EOSINOPHILS # (AUTO) 0.2 (0.0-0.4); EOSINOPHILS % 3.9 % (0.0-6.0); HEMATOCRIT 48.4 % (38.2-49.6); HEMOGLOBIN 16.1 g/dL (14.0-18.0); LYMPHOCYTES # (AUTO) 1.5 (1.0-3.2); LYMPHOCYTES % 27.5 % (18.0-39.1); MEAN CORPUSCULAR HEMOGLOBIN 29.9 pg (28-32); MEAN CORPUSCULAR HGB CONC 33.3 g/dL (31-35); MONOCYTES # (AUTO) 0.6 (0.2-0.8); MONOCYTES % 10.4 % (4.4-11.3); NEUTROPHILS # (AUTO) 3.1 (2.1-6.9); NEUTROPHILS % 57.1 % (38.7-80.0); PLATELET COUNT 131 x10e3/uL (140-360); RED BLOOD COUNT 5.38 x10e6/uL (4.3-5.7); RED CELL DISTRIBUTION WIDTH 13.1 % (11.7-14.4)
[2020-08-31 14:19] LABS: PARTIAL THROMBOPLASTIN TIME 74.3 seconds (23.8-35.5)
[2020-08-31 14:25] LABS: INR 6.94; PROTHROMBIN TIME 66.7 seconds (11.9-14.5)
[2020-08-31 14:26] LABS: ALBUMIN 3.7 g/dL (3.5-5.0); ANION GAP 14.4 mmol/L (8-16); CALCIUM 8.7 mg/dL (8.4-10.2); CREATININE, SERUM 1.37 mg/dL (0.72-1.25); POTASSIUM 4.4 mmol/L (3.5-5.1)
[2020-08-31] MEDS ORDERED: PHYTONADIONE 5 MG TAB PO ONE (15:00)
[2020-08-31] MEDS ORDERED: PHYTONADIONE 10 MG/ML AMP PO ONE (15:15)
[2020-08-31 15:21] VITALS: BP 148/86
== END 2020-08-31 15:23 | disposition home or self-care (01) ==
LOC: ER 13:01
DX: D68.32 Hemorrhagic disorder due to extrinsic circulating anticoagulants (principal); T45.515A Adverse effect of anticoagulants, initial encounter; I10 Essential (primary) hypertension; Z86.711 Personal history of pulmonary embolism; Z86.718 Personal history of other venous thrombosis and embolism; Z87.440 Personal history of urinary (tract) infections; Z95.810 Presence of automatic (implantable) cardiac defibrillator; Z98.61 Coronary angioplasty status
CPT/HCPCS: 36415; 80053; 85025; 85610; 85730; 86850; 86900; 99283; J3430

== ENCOUNTER 2021-02-09 21:25 | Emergency (ER) | payer OTHER ==
[~2021-02-09] VITALS: Ht 170.2 cm; Wt 79.4 kg
[2021-02-10 04:22] VITALS: BP 142/89
== END 2021-02-09 23:55 | disposition home or self-care (01) ==
LOC: ER 21:33
DX: S00.01XA Abrasion of scalp, initial encounter (principal); S00.412A Abrasion of left ear, initial encounter; S00.411A Abrasion of right ear, initial encounter; W01.198A Fall on same level from slipping, tripping and stumbling with subsequent striking against other object, initial encounter; Y93.H2 Activity, gardening and landscaping; Y92.007 Garden or yard of unspecified non-institutional (private) residence as the place of occurrence of the external cause; I10 Essential (primary) hypertension; Z95.810 Presence of automatic (implantable) cardiac defibrillator; Z86.718 Personal history of other venous thrombosis and embolism; R91.8 Other nonspecific abnormal finding of lung field
CPT/HCPCS: 70450; 71045; 72125

== ENCOUNTER → 2021-03-06 | Day surgery (SDC) | payer OTHER ==
[2021-03-03 14:13] LABS: BASOPHILS # (AUTO) 0.1 (0.0-0.1); BASOPHILS % 0.8 % (0.0-1.0); EOSINOPHILS # (AUTO) 0.3 (0.0-0.4); EOSINOPHILS % 4.3 % (0.0-6.0); HEMATOCRIT 47.5 % (38.2-49.6); HEMOGLOBIN 15.8 g/dL (14.0-18.0); LYMPHOCYTES % 31.2 % (18.0-39.1); MEAN CORPUSCULAR HEMOGLOBIN 29.8 pg (28-32); MEAN CORPUSCULAR HGB CONC 33.3 g/dL (31-35); MEAN CORPUSCULAR VOLUME 89.6 fL (81-99); MONOCYTES # (AUTO) 0.6 (0.2-0.8); MONOCYTES % 8.8 % (4.4-11.3); NEUTROPHILS # (AUTO) 3.5 (2.1-6.9); NEUTROPHILS % 54.6 % (38.7-80.0); PLATELET COUNT 137 x10e3/uL (140-360); RED CELL DISTRIBUTION WIDTH 13.6 % (11.7-14.4)
[2021-03-03 14:34] LABS: ANION GAP 14.9 mmol/L (8-16); CALCIUM 9.1 mg/dL (8.4-10.2); CREATININE, SERUM 1.38 mg/dL (0.72-1.25); POTASSIUM 4.9 mmol/L (3.5-5.1)
[~2021-03-06] MED LIST changes: +BUPIVACAINE HCL 0.5% INJ 30 ML VIAL INJ ONE; +CRESTOR10 MG PO; +DEXAMETHASONE SOD PHOS INJ 4 MG/ML VIAL ONE; +FISH OIL 1,0001 EAC2 PO; +GLYCOPYRROLATE INJ 0.2 MG/ML VIAL ONE; +HYDROCODON-ACE1 EA11 PO; +LIDOCAINE HCL 2% LOCAL INJ 5 ML SDV VIAL INJ ONE; +MULTI-VITAMIN1 EACH PO; +NEOSTIGMINE 1 MG/ML 10ML VIAL ONE; +ONDANSETRON HCL INJ 2MG/ML 2ML 2 MG/ML VIAL ONE; +POVIDONE IODINE 0.05% 0.05 % ML PO ONE; +PROPOFOL IV EMULSION 10 MG/ML 20 ML VIAL ONE; +SEVOFLURANE INHAL SOLN 250 ML PEN BTL ONE; +SODIUM CHLORIDE 0.9% 50ML 100 ML ONE; +ZINC PO
[2021-03-06 08:44] LABS: PARTIAL THROMBOPLASTIN TIME 41.8 seconds (23.8-35.5)
[2021-03-06 08:47] LABS: INR 2.64; PROTHROMBIN TIME 28.6 seconds (11.9-14.5)
[2021-03-06 10:35] VITALS: BP 128/78
== END | disposition home or self-care (01) ==
LOC: OR 06:07
PROVIDERS: ATTEND Surgery
DX: K40.20 Bilateral inguinal hernia, without obstruction or gangrene, not specified as recurrent (principal); I48.91 Unspecified atrial fibrillation; Z95.810 Presence of automatic (implantable) cardiac defibrillator; Z01.810 Encounter for preprocedural cardiovascular examination; Z01.812 Encounter for preprocedural laboratory examination; Z01.811 Encounter for preprocedural respiratory examination; Z20.822 Contact with and (suspected) exposure to COVID-19
CPT/HCPCS: 36415 ×2; 49505; 71046; 80048; 85025; 85610; 85730; 93005; C1781; J0690; J1100; J2001; J2405; J2704; J2710; U0002

== ENCOUNTER → 2022-04-16 | Outpatient (CLI) | payer OTHER ==
[~2022-04-16] MED LIST changes: -BUPIVACAINE HCL 0.5% INJ 30 ML VIAL INJ ONE; +D3-5000125 MCG PO; -DEXAMETHASONE SOD PHOS INJ 4 MG/ML VIAL ONE; +FISH OIL 1,201200 MG PO; -GLYCOPYRROLATE INJ 0.2 MG/ML VIAL ONE; -LIDOCAINE HCL 2% LOCAL INJ 5 ML SDV VIAL INJ ONE; -NEOSTIGMINE 1 MG/ML 10ML VIAL ONE; -ONDANSETRON HCL INJ 2MG/ML 2ML 2 MG/ML VIAL ONE; -POVIDONE IODINE 0.05% 0.05 % ML PO ONE; -PROPOFOL IV EMULSION 10 MG/ML 20 ML VIAL ONE; -SEVOFLURANE INHAL SOLN 250 ML PEN BTL ONE; -SODIUM CHLORIDE 0.9% 50ML 100 ML ONE
[2022-04-16 12:53] LABS: BASOPHILS % 0.7 % (0.0-1.0); EOSINOPHILS # (AUTO) 0.3 (0.0-0.4); EOSINOPHILS % 4.4 % (0.0-6.0); HEMOGLOBIN 15.5 g/dL (14.0-18.0); LYMPHOCYTES # (AUTO) 1.5 (1.0-3.2); LYMPHOCYTES % 25.4 % (18.0-39.1); MEAN CORPUSCULAR HEMOGLOBIN 30.3 pg (28-32); MEAN CORPUSCULAR HGB CONC 33.7 g/dL (31-35); MONOCYTES # (AUTO) 0.4 (0.2-0.8); MONOCYTES % 7.4 % (4.4-11.3); NEUTROPHILS # (AUTO) 3.5 (2.1-6.9); NEUTROPHILS % 61.9 % (38.7-80.0); PLATELET COUNT 165 x10e3/uL (140-360); RED BLOOD COUNT 5.11 x10e6/uL (4.3-5.7); RED CELL DISTRIBUTION WIDTH 12.7 % (11.7-14.4)
== END | disposition home or self-care (01) ==
LOC: RAD 10:00 → EDSTATUS 04-23 09:00
PROVIDERS: ATTEND Internal Medicine Gastroenterology
DX: R19.5 Other fecal abnormalities (principal); Z53.9 Procedure and treatment not carried out, unspecified reason
CPT/HCPCS: 36415; 85025; 93005

== ENCOUNTER 2022-04-20 22:26 | Inpatient (IN) | payer MEDICARE, OTHER ==
[~2022-04-20] VITALS: Ht 172.7 cm; Wt 77.6 kg
[~2022-04-20 22:26] MED LIST changes: -D3-5000125 MCG PO; -FISH OIL 1,201200 MG PO
[2022-04-20 22:55] LABS: BASOPHILS # (AUTO) 0.1 (0.0-0.1); BASOPHILS % 0.7 % (0.0-1.0); EOSINOPHILS # (AUTO) 0.3 (0.0-0.4); EOSINOPHILS % 3.8 % (0.0-6.0); HEMATOCRIT 45.6 % (38.2-49.6); HEMOGLOBIN 15.3 g/dL (14.0-18.0); LYMPHOCYTES # (AUTO) 1.9 (1.0-3.2); LYMPHOCYTES % 26.4 % (18.0-39.1); MEAN CORPUSCULAR HEMOGLOBIN 30.1 pg (28-32); MEAN CORPUSCULAR HGB CONC 33.6 g/dL (31-35); MEAN CORPUSCULAR VOLUME 89.8 fL (81-99); MONOCYTES # (AUTO) 0.8 (0.2-0.8); MONOCYTES % 11.5 % (4.4-11.3); NEUTROPHILS # (AUTO) 4.1 (2.1-6.9); NEUTROPHILS % 57.5 % (38.7-80.0); PLATELET COUNT 158 x10e3/uL (140-360); RED BLOOD COUNT 5.08 x10e6/uL (4.3-5.7); RED CELL DISTRIBUTION WIDTH 12.7 % (11.7-14.4)
[2022-04-20 23:18] LABS: ALBUMIN 3.5 g/dL (3.5-5.0); ALBUMIN/GLOBULIN RATIO 0.8 (0.8-2.0); ANION GAP 14.2 mmol/L (8-16); CALCIUM 9.2 mg/dL (8.4-10.2); CREATININE, SERUM 1.39 mg/dL (0.72-1.25); POTASSIUM 4.2 mmol/L (3.5-5.1)
[2022-04-20 23:24] LABS: CREATINE KINASE MB 2.4 ng/mL (0-5.0)
[2022-04-20] MEDS ORDERED: AMIODARONE HCL 360MG 200 ML IV SCH (23:30)
[2022-04-20] MEDS ORDERED: AMIODARONE HCL 150MG 100 ML IV ONE (23:30)
[2022-04-20] MEDS ORDERED: AMIODARONE HCL 100 ML IV ONE (23:36)
[2022-04-20] MEDS: AMIODARONE 900MG 900 MG in Premix Bag 1 BAG IV SCH (23:40)
[2022-04-20] MEDS ORDERED: AMIODARONE 900MG 500 ML IV ONE (23:43)
[2022-04-20 23:44] LABS: INR 1.4; PARTIAL THROMBOPLASTIN TIME 30.9 seconds (23.8-35.5); PROTHROMBIN TIME 18.3 seconds (11.9-14.5)
[2022-04-21] VITALS (18 sets, daily range): BP systolic 103–155; BP diastolic 68–96
[2022-04-21] MEDS ORDERED: AMIODARONE HCL 360MG 200 ML IV SCH
[2022-04-21 03:49] LABS: CREATINE KINASE MB 2.1 ng/mL (0-5.0)
[2022-04-21] MEDS ORDERED: ENOXAPARIN SOD INJ 60 MG/0.6 ML SYR SC SCH (10:30)
[2022-04-21] MEDS ORDERED: FISH OIL 1,201200 MG PO (11:25)
[2022-04-21] MEDS ORDERED: D3-5000125 MCG PO (11:25)
[2022-04-21 12:00] LABS: CREATINE KINASE MB 1.9 ng/mL (0-5.0)
[2022-04-21] MEDS ORDERED: MAGNESIUM SULFATE 2GM/50ML 50 ML IV ONE ×2 (15:30→17:00)
[2022-04-21] MEDS ORDERED: METOPROLOL SUCCINATE 25 MG TAB XL PO ONE ×2 (15:45→17:00)
[2022-04-21] MEDS: TAMSULOSIN HCL 0.4 MG CAP PO SCH (17:11)
[2022-04-21] MEDS ORDERED: SODIUM CHLORIDE 0.9% 250ML 250 ML ONE (17:21)
[2022-04-21] MEDS: WARFARIN SOD 1 MG TAB PO SCH (17:22)
[2022-04-21 20:33] LABS: CREATINE KINASE MB 1.7 ng/mL (0-5.0)
[2022-04-21] MEDS: ENOXAPARIN SOD INJ 60 MG/0.6 ML SYR SC SCH (20:38)
[2022-04-21] MEDS: SIMVASTATIN 20 MG TAB PO SCH (20:41)
[2022-04-21] MEDS: AMIODARONE 900MG 900 MG in Premix Bag 1 BAG IV SCH (23:58)
[2022-04-22] VITALS (27 sets, daily range): BP systolic 99–147; BP diastolic 61–99
[2022-04-22 06:01] LABS: BASOPHILS # (AUTO) 0.1 (0.0-0.1); BASOPHILS % 0.8 % (0.0-1.0); EOSINOPHILS # (AUTO) 0.2 (0.0-0.4); EOSINOPHILS % 3.3 % (0.0-6.0); HEMATOCRIT 48.5 % (38.2-49.6); HEMOGLOBIN 15.8 g/dL (14.0-18.0); LYMPHOCYTES # (AUTO) 1.4 (1.0-3.2); LYMPHOCYTES % 21.5 % (18.0-39.1); MEAN CORPUSCULAR HGB CONC 32.6 g/dL (31-35); MEAN CORPUSCULAR VOLUME 92.2 fL (81-99); MONOCYTES # (AUTO) 0.6 (0.2-0.8); MONOCYTES % 9.8 % (4.4-11.3); NEUTROPHILS # (AUTO) 4.1 (2.1-6.9); NEUTROPHILS % 64.3 % (38.7-80.0); PLATELET COUNT 139 x10e3/uL (140-360); RED BLOOD COUNT 5.26 x10e6/uL (4.3-5.7); RED CELL DISTRIBUTION WIDTH 12.8 % (11.7-14.4)
[2022-04-22 06:31] LABS: ALBUMIN 3.2 g/dL (3.5-5.0); ALBUMIN/GLOBULIN RATIO 0.8 (0.8-2.0); CALCIUM 8.9 mg/dL (8.4-10.2); CREATININE, SERUM 1.3 mg/dL (0.72-1.25); MAGNESIUM 2.2 MG/DL (1.3-2.1); PHOSPHORUS 2.6 MG/DL (2.3-4.7)
[2022-04-22 06:37] LABS: THYROID STIMULATING HORMONE 0.946 uIU/mL (0.350-4.940)
[2022-04-22 06:54] LABS: CHOL/HDL RATIO 4.7 (3.9-4.7)
[2022-04-22] MEDS: PANTOPRAZOLE SOD 40 MG TABEC PO SCH (07:13)
[2022-04-22 08:03] LABS: INR 1.33; PROTHROMBIN TIME 17.6 seconds (11.9-14.5)
[2022-04-22] MEDS: METOPROLOL SUCCINATE 25 MG TAB XL PO SCH (08:48)
[2022-04-22] MEDS: MULTIVITAMINS/MINERALS TAB PO SCH (09:00)
[2022-04-22] MEDS: HOME MEDICATION--PATIENTS OWN PO SCH (09:00)
[2022-04-22] MEDS: LOSARTAN POTASSIUM 25 MG TAB PO SCH (09:02)
[2022-04-22] MEDS: ENOXAPARIN SOD INJ 60 MG/0.6 ML SYR SC SCH ×2 (09:03→21:09)
[2022-04-22] MEDS ORDERED: REGADENOSON 0.4 MG/5 ML SYR IV ONE (12:13)
[2022-04-22] MEDS: TAMSULOSIN HCL 0.4 MG CAP PO SCH (17:22)
[2022-04-22] MEDS: WARFARIN SOD 1 MG TAB PO SCH (17:22)
[2022-04-22] MEDS ORDERED: AMIODARONE HCL 200 MG TAB PO ONE (19:10)
[2022-04-22] MEDS: SIMVASTATIN 20 MG TAB PO SCH (21:10)
[2022-04-23] VITALS (9 sets, daily range): BP systolic 72–136; BP diastolic 26–95
[2022-04-23 05:08] LABS: INR 1.29; PROTHROMBIN TIME 17.2 seconds (11.9-14.5)
[2022-04-23] MEDS: PANTOPRAZOLE SOD 40 MG TABEC PO SCH (08:25)
[2022-04-23] MEDS: MULTIVITAMINS/MINERALS TAB PO SCH (08:25)
[2022-04-23] MEDS: HOME MEDICATION--PATIENTS OWN PO SCH (08:25)
[2022-04-23] MEDS: ENOXAPARIN SOD INJ 60 MG/0.6 ML SYR SC SCH (08:25)
[2022-04-23] MEDS: LOSARTAN POTASSIUM 25 MG TAB PO SCH (08:32)
[2022-04-23] MEDS: METOPROLOL SUCCINATE 25 MG TAB XL PO SCH (08:32)
== END 2022-04-23 11:59 | disposition home or self-care (01) | DRG 309 ==
LOC: ER 22:30 → ERHOLD 04-21 01:50 → ICU 04-21 12:28
PROVIDERS: ADMIT Internal Medicine; ATTEND Internal Medicine
DX: I48.0 Paroxysmal atrial fibrillation (principal); I13.0 Hypertensive heart and chronic kidney disease with heart failure and stage 1 through stage 4 chronic kidney disease, or unspecified chronic kidney disease; I50.42 Chronic combined systolic (congestive) and diastolic (congestive) heart failure; I47.2 Ventricular tachycardia; Z95.810 Presence of automatic (implantable) cardiac defibrillator; E78.5 Hyperlipidemia, unspecified; I25.10 Atherosclerotic heart disease of native coronary artery without angina pectoris; Z20.822 Contact with and (suspected) exposure to COVID-19; N18.30 Chronic kidney disease, stage 3 unspecified; I25.2 Old myocardial infarction; N40.0 Benign prostatic hyperplasia without lower urinary tract symptoms; Z87.891 Personal history of nicotine dependence; I25.5 Ischemic cardiomyopathy; Z86.718 Personal history of other venous thrombosis and embolism; Z79.01 Long term (current) use of anticoagulants; Z86.711 Personal history of pulmonary embolism
CPT/HCPCS: 0223U; 36415; 71045; 78452; 80053; 80061; 82550; 82553; 83735; 83880; 84100; 84443; 84484; 85025; 85610; 85730; 93005; 93017; 94799; 96361; 99285; A9502; J1650; J3475; J7050

== ENCOUNTER → 2022-07-23 | Outpatient (CLI) | payer MEDICARE ==
[2022-07-17 14:51] LABS: BASOPHILS % 0.7 % (0.0-1.0); EOSINOPHILS # (AUTO) 0.3 (0.0-0.4); EOSINOPHILS % 4.5 % (0.0-6.0); HEMATOCRIT 50.7 % (38.2-49.6); HEMOGLOBIN 16.7 g/dL (14.0-18.0); LYMPHOCYTES # (AUTO) 1.6 (1.0-3.2); MEAN CORPUSCULAR HEMOGLOBIN 30.4 pg (28-32); MEAN CORPUSCULAR HGB CONC 32.9 g/dL (31-35); MEAN CORPUSCULAR VOLUME 92.2 fL (81-99); MONOCYTES # (AUTO) 0.6 (0.2-0.8); NEUTROPHILS # (AUTO) 3.4 (2.1-6.9); NEUTROPHILS % 57.6 % (38.7-80.0); PLATELET COUNT 171 x10e3/uL (140-360)
[~2022-07-23] MED LIST changes: +D3-5000125 MCG PO; +ENTRESTO 24 MG1 EACH PO; +FISH OIL 1,201200 MG PO; +MEXILETINE HCL150 MG PO; +SPIRONOLACTONE25 MG PO
[2022-07-23 06:41] LABS: INR 2.85; PARTIAL THROMBOPLASTIN TIME 40.2 seconds (23.8-35.5)
== END | disposition home or self-care (01) ==
LOC: RAD 05:25 → OR 05:25 → EDSTATUS 07:00
PROVIDERS: ATTEND Internal Medicine Gastroenterology
DX: R19.5 Other fecal abnormalities (principal); Z01.810 Encounter for preprocedural cardiovascular examination; Z01.812 Encounter for preprocedural laboratory examination; Z53.9 Procedure and treatment not carried out, unspecified reason
CPT/HCPCS: 36415; 85025; 85610; 85730; 93005